=== PATIENT | female | born 1945 | race Caucasian/White ===

== ENCOUNTER 2016-11-02 20:34 | Emergency (ER) | payer MEDICARE, BC ==
[2016-11-02 21:01] VITALS: BP 138/83
[2016-11-02] MEDS ORDERED: Aspirin 81 MG Tab.Chew PO ONE (21:18)
[2016-11-02] MEDS ORDERED: Sodium Chloride 0.9% 10 ML Syringe FLUSH PRN (21:18)
--- NOTE | 2016-11-02 21:35 | EDM.PDOC ---
ED HISTORY OF PRESENT ILLNESS - General Chief Complaint: Cardiovascular Problem Stated Complaint: CHEST PRESSURE SOB Time Seen by Provider: 11/02/16 21:04 Source of Information: Reports: Patient History Limitations: Reports: No limitations - History of Present Illness INITIAL COMMENTS - FREE TEXT/NARRATIVE: Patient is a 70-year-old female with a history of [place], CABG x4, hypertension, hypercholesterolemia, and hypothyroidism. Patient presents ED complaining of substernal chest discomfort with shortness of breath. Patient states for the past month she's been experiencing intermittent chest discomfort described as a pressure in the middle portion of her chest rated a 6/10. In addition she's been noting increased shortness of breath as well. Prior to onset patient was on Lasix on an intermittent basis. With onset of symptoms she started to get more regulated up until a week ago. Notes at that time symptoms have gradually worsened. States she's never been diagnosed as CHF. Denies any recent weight gain or increased pedal edema. She is always determine her needs for Lasix to the degree of shortness of breath she has. This evening at approximately 1600 hours developed chest pain shortness of breath. Again thisit discomfort was described as a pressure sensation retrosternal rated a 6/10. She took one 10 mg tablet Lasix with onset. Upon arrival to the ED the pressure sensation has resolved in addition to her shortness of breath. Timing/Duration: Reports: Intermittent, Waxing/waning Severity: moderate Location, General: Reports: chest Quality: Reports: Ache, Pressure Improves with: Reports: Medication (Lasix), Rest Associated Symptoms (General): Reports: chest pain, malaise, shortness of breath. Denies: cough, diaphoresis, fever/chills, loss of appetite, nausea/ vomiting, syncope, weakness Treatments QUARTZ MOUNTER: Reports: Other (see below) (Lasix) - Related Data Allergies/ADRs: Allergies Allergy/AdvReac Type Severity Reaction Status Date / Time No Known Allergies Allergy Verified 11/02/16 21:01 Past Medical History Cardiovascular History: Reports: Arrhythmia, CAD, High cholesterol, Hypertension , [place] Genitourinary History: Reports: Renal calculus Endocrine/Metabolic History: Reports: Hypothyroidism - Past Surgical History Cardiovascular Surgical History: Reports: Coronary artery bypass GI Surgical History: Reports: Cholecystectomy Social & Family History - Family History Family Medical History: Noncontributory - Tobacco Use Smoking Status *Q: Never Smoker - Recreational Drug Use Recreational Drug Use: No ED ROS GENERAL - Review of Systems Review Of Systems: See Below Respiratory: Reports: Shortness of Breath. Denies: Pleuritic Chest Pain, Cough Cardiovascular: Reports: Chest pain, Dyspnea on exertion, Palpitations. Denies : Edema, Lightheadedness, Orthopnea, PND, Syncope GI/Abdominal: Denies: Abdominal pain, Nausea, Vomiting Musculoskeletal: Denies: back pain Neurological: Denies: Dizziness, Headache, Syncope, Weakness ED EXAM, GENERAL - Physical Exam Exam: See Below Exam Limited By: No limitations General Appearance: alert, WD/WN, no apparent distress Ears: hearing grossly normal Nose: normal inspection Throat/Mouth: Normal oropharynx, Normal voice, No airway compromise Neck: normal inspection, supple, non-tender. No: lymphadenopathy (L), lymphadenopathy (R) Respiratory/Chest: no respiratory distress, lungs clear, normal breath sounds, no accessory muscle use, chest non-tender Cardiovascular: normal peripheral pulses, extra beats Peripheral Pulses: 1+: radial (L) GI/Abdominal: normal bowel sounds, soft, non tender, no organomegaly, no distention Back Exam: normal inspection. No: paraspinal tenderness Extremities: normal inspection, non-tender, no pedal edema, normal capillary refill Neurological: alert, oriented, CN II-XII intact, normal cognition, no motor/ sensory deficits Psychiatric: normal affect, normal mood Skin Exam: Warm, Dry, Intact, Normal color, No rash Course - Vital Signs Last Recorded V/S: Last Vital Signs Temp 97.2 F 11/02/16 20:58 Pulse 51 L 11/02/16 20:58 Resp 26 H 11/02/16 20:58 BP 138/83 11/02/16 20:58 Pulse Ox 95 11/02/16 20:58 - Orders/Labs/Meds Orders: Active Orders 24 hr Category Date Time Status EKG Documentation Completion [RC] STAT Care 11/02/16 21:18 Active Peripheral IV Care [RC] . DIRECTED Care 11/02/16 21:18 Active CXR [Chest 1V Frontal] [CR] Stat Exams 11/02/16 21:20 Taken UA W/MICROSCOPIC [URIN] Stat Lab 11/02/16 21:18 Uncollected Sodium Chloride 0.9% [Saline Flush] Med 11/02/16 21:18 Active 10 ml FLUSH ASDIRECTED PRN Peripheral IV Insertion Adult [OM.PC] Stat Oth 11/02/16 21:18 Ordered Medication Orders Sodium Chloride (Saline Flush) 10 ml FLUSH ASDIRECTED PRN PRN Reason: Keep Vein Open Last Admin: 11/02/16 21:39 Dose: 10 ml Labs: Laboratory Tests 11/02/16 11/02/16 11/02/16 Range/Units 21:15 21:15 21:15 WBC 8.71 (3.98-10.04) K/mm3 RBC 4.00 (3.98-5.22) M/mm3 Hgb 11.9 (11.2-15.7) gm/L Hct 36.8 (34.1-44.9) % MCV 92.0 (79.4-94.8) fl MCH 29.8 (25.6-32.2) pg MCHC 32.3 (32.2-35.5) g/dl RDW Std Deviation 46.3 (36.4-46.3) fL Plt Count 237 (182-369) K/mm3 MPV 11.2 (9.4-12.3) fl Neut % (Auto) 47.6 (34.0-71.1) % Lymph % (Auto) 36.5 (19.3-51.7) % Tyler % (Auto) 12.1 (4.7-12.5) % Eos % (Auto) 3.1 (0.7-5.8) Baso % (Auto) 0.2 (0.1-1.2) % Neut # 4.15 (1.56-6.13) K/mm3 Lymph # 3.18 (1.18-3.74) K/mm3 Tyler # 1.05 H (0.24-0.36) K/mm3 Eos # 0.27 (0.04-0.36) K/mm3 Baso # 0.02 (0.01-0.08) K/mm3 PT 10.6 (8.0-13.0) SECONDS INR 0.97 APTT 27 (22-36) SECONDS Sodium 144 (136-145) mEq/L Potassium 3.6 (3.5-5.1) mEq/L Chloride 111 H (98-107) mEq/L Carbon Dioxide 23 (21-32) mEq/L Anion Gap 13.6 (5-15) BUN 28 H (7-18) mg/dL Creatinine 1.2 H (0.55-1.02) mg/dL Est Cr Clr Drug Dosing 37.12 mL/min Estimated GFR (MDRD) 45 (>60) mL/min BUN/Creatinine Ratio 23.3 H (14-18) Glucose 147 H (80-115) mg/dL Calcium 8.7 (8.5-10.1) mg/dL Magnesium 2.0 (1.8-2.4) mg/dl Total Bilirubin 0.4 (0.2-1.0) mg/dL AST 14 L (15-37) U/L ALT 22 (14-59) U/L Alkaline Phosphatase 92 (46-116) U/L CK-MB (CK-2) 1.2 (0-3.6) ng/ml Troponin I 0.133 H* (0.00-0.056) ng/mL C-Reactive Protein < 0.2 (<1.0) mg/dL B-Natriuretic Peptide (0-100) pg/mL Total Protein 6.9 (6.4-8.2) g/dl Albumin 3.4 (3.4-5.0) g/dl Globulin 3.5 gm/dL Albumin/Globulin Ratio 1.0 (1-2) // Range/Units 21:15 WBC (3.98-10.04) K/mm3 RBC (3.98-5.22) M/mm3 Hgb (11.2-15.7) gm/L Hct (34.1-44.9) % MCV (79.4-94.8) fl MCH (25.6-32.2) pg MCHC (32.2-35.5) g/dl RDW Std Deviation (36.4-46.3) fL Plt Count (182-369) K/mm3 MPV (9.4-12.3) fl Neut % (Auto) (34.0-71.1) % Lymph % (Auto) (19.3-51.7) % [place] % (Auto) (4.7-12.5) % Eos % (Auto) (0.7-5.8) Baso % (Auto) (0.1-1.2) % Neut # (1.56-6.13) K/mm3 Lymph # (1.18-3.74) K/mm3 Tyler # (0.24-0.36) K/mm3 Eos # (0.04-0.36) K/mm3 Baso # (0.01-0.08) K/mm3 PT (8.0-13.0) SECONDS INR APTT (22-36) SECONDS Sodium (136-145) mEq/L Potassium (3.5-5.1) mEq/L Chloride (98-107) mEq/L Carbon Dioxide (21-32) mEq/L Anion Gap (5-15) BUN (7-18) mg/dL Creatinine (0.55-1.02) mg/dL Est Cr Clr Drug Dosing mL/min Estimated GFR (MDRD) (>60) mL/min BUN/Creatinine Ratio (14-18) Glucose (80-115) mg/dL Calcium (8.5-10.1) mg/dL Magnesium (1.8-2.4) mg/dl Total Bilirubin (0.2-1.0) mg/dL AST (15-37) U/L ALT (14-59) U/L Alkaline Phosphatase (46-116) U/L CK-MB (CK-2) (0-3.6) ng/ml Troponin I (0.00-0.056) ng/mL C-Reactive Protein (<1.0) mg/dL B-Natriuretic Peptide 764 H (0-100) pg/mL Total Protein (6.4-8.2) g/dl Albumin (3.4-5.0) g/dl Globulin gm/dL Albumin/Globulin Ratio (1-2) Meds: Medications Generic Name Dose Route Start Last Admin Trade Name Freq PRN Reason Stop Dose Admin Sodium Chloride 10 ml 11/02/16 21:18 11/02/16 21:39 Saline Flush FLUSH 10 ml ASDIRECTED PRN Administration Keep Vein Open Discontinued Medications Generic Name Dose Route Start Last Admin Trade Name Freq PRN Reason Stop Dose Admin Aspirin 324 mg 11/02/16 21:18 11/02/16 21:38 Aspirin PO 11/02/16 21:19 324 mg ONETIME ONE Administration Enoxaparin Sodium 80 mg 11/02/16 22:52 Lovenox SUBCUT 11/02/16 22:53 ONETIME ONE - Re-Assessments/Exams Free Text/Narrative Re-Assessment/Exam: Ordered peripheral IV. Initial labs and studies include CBC, chem 14, CRP, troponin, CK-MB, INR, PTT, chest x-ray one view, magnesium, and EKG. EKG revealed a sinus rhythm at a rate of [address] changes noted. Chest x-ray revealed cardiomegaly with increased pulmonary vascularization noted. Interpretation pending. Labs reviewed: Sodium 144, potassium 3.6, creatinine 1.2, troponin elevated at 0.133. CK-MB within normal limits. BNP 64. UA was negative. CBC was normal. 11/02/16 22:53 2234 Shared the results of the above studies with the patient. The patient remains asymptomatic and has no complaints. Instructed patient I would like to have her transferred to [facility] via ambulance for further evaluation and treatment. Patient has refused ambulance transport and will go by personal vehicle. She was made aware that she may go into a fatal arrhythmia , worsening chest pain, and worsening shortness of breath. Patient again stated she has been like this for the past month and is still living. She reiterates she will be fine. 2[address] Discussed the patient with Dr. Tadeo [facility]. He has accepted the patient. States patient will be a direct admit. Requests patient be transported by ambulance. I advised him that patient will be coming by POV. 224 Again I advised patient I would like to have her transported by ambulance to which she refused. I will anticoagulate with lovenox 1mg/kg per request of Dr. Tadeo. She will be discharged with instructions. Departure - Departure Time of Disposition: 23:03 Disposition: DC/Tfer to Acute Hospital 02 Reason for Transfer *Q: Other (NSTEMI) Condition: fair Clinical Impression: NSTEMI (non-ST elevated myocardial infarction), Elevated troponin, Shortness of breath Chest pain Qualifiers: Chest pain type: chest pain due to myocardial ischemia Ischemic chest pain type : unspecified angina pectoris type Qualified Code(s): I20.9 - Angina pectoris, unspecified CHF (congestive heart failure) Qualifiers: Congestive heart failure type: unspecified congestive heart failure type Congestive heart failure chronicity: unspecified congestive heart failure chronicity Qualified Code(s): I50.9 - Heart failure, unspecified Instructions: Nonspecific Chest Pain, [id number] Referrals: Annie Guidry PA [Primary Care Provider] - Forms: ED Department Discharge Additional Instructions: As discussed Dr. Tadeo [facility] has accepted you. Please go to the admitting desk at the east entrance. If you develop worsening symptoms in transport call 911 and or proceed to the nearest E.D. You are at risk of developing worsening shortness of breath/chest pain with risk of developing a fatal arrhythmia during transport. Its in your best interest to be transported by ambulance so you can be treated appropriately if your condition worsens. - My Orders Last 24 Hours: My Active Orders 11/02/16 21:18 EKG Documentation Completion [RC] STAT Peripheral IV Care [RC] . DIRECTED UA W/MICROSCOPIC [URIN] Stat Sodium Chloride 0.9% [Saline Flush] 10 ml FLUSH ASDIRECTED PRN Peripheral IV Insertion Adult [OM.PC] Stat 11/02/16 21:20 CXR [Chest 1V Frontal] [CR] Stat - Assessment/Plan Last 24 Hours: My Active Orders 11/02/16 21:18 EKG Documentation Completion [RC] STAT Peripheral IV Care [RC] . DIRECTED UA W/MICROSCOPIC [URIN] Stat Sodium Chloride 0.9% [Saline Flush] 10 ml FLUSH ASDIRECTED PRN Peripheral IV Insertion Adult [OM.PC] Stat 11/02/16 21:20 CXR [Chest 1V Frontal] [CR] Stat
[2016-11-02] MEDS ORDERED: Enoxaparin 80 MG/0.8 ML Syringe SUBCUT ONE (22:52)
--- NOTE | 2016-11-03 08:01 | CR ---
Chest: Portable view of the chest was obtained. Comparison: No previous chest x-ray. Heart size at the upper limits of normal. Tortuous thoracic aorta is seen. Sternotomy noted for prior CABG. Central lung markings are mildly increased most likely due to minimal pulmonary vascular congestion. Slight areas of atelectasis or scarring noted within the right mid to lower lung. Bony structures are grossly intact. Impression: 1. Pulmonary vessels are slightly increased possibly due to minimal pulmonary vascular congestion. 2. Other incidental findings as described above. Diagnostic code #3
== END 2016-11-02 23:25 ==
LOC: JD.ED 20:34
DX: I21.4 Non-ST elevation (NSTEMI) myocardial infarction (principal); I50.9 Heart failure, unspecified; E78.00 Pure hypercholesterolemia, unspecified; I11.0 Hypertensive heart disease with heart failure; I25.2 Old myocardial infarction; E03.9 Hypothyroidism, unspecified
CPT/HCPCS: 36415; 71010; 80053; 82553; 83735; 83880; 84484; 85025; 85610; 85730; 86140; 93005; 96372; 99285; A9270; J7050; 99284

== ENCOUNTER 2018-02-27 19:13 | Emergency (ER) | payer MEDICARE, BC ==
[2018-02-27 19:24] VITALS: BP 153/89
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
[2018-02-27] MEDS ORDERED: Sodium Chloride 0.9% 1,000 ML IV SCH (20:00)
--- NOTE | 2018-02-28 09:26 | CT ---
CT abdomen and pelvis Technique: Multiple axial sections were obtained from above the dome of the diaphragm inferiorly through the pubic symphysis. Intravenous and oral contrast was not utilized. Delayed images were also obtained through the bladder. Comparison: Prior CT abdominal and pelvic exam performed without contrast dated 07/25/10. Findings: Small portion of the visualized lung bases show nothing acute. Dense mitral annulus calcification is seen within the heart. Liver shows no focal parenchymal abnormality. Surgical clips are seen from prior cholecystectomy. Spleen appears within normal limits. Adrenal glands show no nodule. Pancreas is normal. Surgical clips are seen from prior cholecystectomy. Kidneys show symmetric contrast enhancement. Small nonobstructing calculus is seen within the inferior left kidney measuring approximately 4 mm. Small cyst is noted within the mid left kidney measuring 1.1 cm. Aorta shows atherosclerotic calcification which continues into the iliac vessels without aneurysm. No retroperitoneal adenopathy is seen. Appendix is not visualized. No inflammatory change is seen within the abdomen or pelvis. Diverticuli are seen within the sigmoid and descending colon without findings of diverticulitis. No free fluid is seen within the abdomen or pelvis. No bowel dilatation is seen. Delayed images show contrast within the bladder. Bone window settings were reviewed which appear within normal limits for the patient's age. Impression: 1. Incidental findings. Nothing acute is seen. Diagnostic code #2 I agree with preliminary report issued by [employer] ([employer] preliminary report dictated on 02/28/18, 1:20 AM Central Time)
== END 2018-02-28 01:10 | disposition home or self-care (01) ==
LOC: JD.ED 19:13
DX: R10.31 Right lower quadrant pain (principal); E78.00 Pure hypercholesterolemia, unspecified; I10 Essential (primary) hypertension; I25.2 Old myocardial infarction; E03.9 Hypothyroidism, unspecified; Z79.899 Other long term (current) drug therapy
CPT/HCPCS: 36415; 74177; 80053; 81001; 83690; 85007; 85027; 96360; 96361; 99284; J7040

== ENCOUNTER 2018-09-08 15:18 | Emergency (ER) | payer MEDICARE, BC ==
[2018-09-08] MEDS ORDERED: Aspirin 81 MG Tab.Chew ONE (15:21)
[2018-09-08] MEDS ORDERED: Aspirin 81 MG Tab.Chew PO ONE (15:22)
[2018-09-08 15:28] VITALS: BP 98/68
[2018-09-08] MEDS ORDERED: Sodium Chloride 0.9% 1,000 ML IV SCH (15:30)
[2018-09-08] MEDS ORDERED: Metoclopramide 10 MG/2 ML SDV IVPUSH ONE (15:32)
--- NOTE | 2018-09-08 15:32 | EDM.PDOC ---
ED HPI GENERAL MEDICAL PROBLEM - General Chief Complaint: Syncope Stated Complaint: [facility] Time Seen by Provider: 09/08/18 15:22 Source of Information: Reports: Patient, EMS Notes Reviewed, Police History Limitations: Reports: No Limitations - History of Present Illness INITIAL COMMENTS - FREE TEXT/NARRATIVE: 72-year-old female presents to the ED per ambulance after collapsing at [facility] [place] [facility] where she was taking full dose for work. Apparently she works for the [employer]. She states she has no recollection of feeling unwell other than perhaps slightly dizzy just before her collapse. Tendons on scene identify that she did not have a pulse and was not breathing and therefore CPR was started. NAD was identified and placed. Apparently recommended shock and shock was given. CPR was started once again until the AED suggested a shock again and this second shock was provided. After this she developed spontaneous pulses and started to arouse. This is when the paramedics arrived. At this point time she is alert she is awake she's talking she remembers feeling slightly lightheaded before she collapsed. She has no recollection of having CPR done on her. She is complaining of diffuse right sided chest wall pain. Is a history of coronary disease having had bypass once in the past for another 2 or 3 vessel repair. She has had 4 stents placed as well due to coronary disease at different settings. On Plavix according to her medical list of meds. Initial blood pressure here was 98/62. She was given aspirin 324 mg chewed. ECG reveals sinus rhythm at 85/m with Q waves leads V1 and V2 and near Q-wave in V3 suggesting a large anteroseptal myocardial infarction. Marked left ventricular hypertrophy identified. There is ST segment depression V4 to V6 and one in aVL. Perhaps mild ST segment depression in lead 2 and aVF as well. T wave inversion in leads 1 and aVL. This suggests a non- STEMI. I will try and find another ECG for comparison purposes. She'll be given normal saline 150ml fluid bolus at this time. Routine labs including cardiac markers to be done. Onset: Today Onset Date: 09/08/18 Onset Time: 15:00 Duration: Minutes: Location: Reports: Chest, Generalized Quality: Reports: Ache (Rt side of her chest) Severity: Moderate Improves with: Reports: Rest Worsens with: Reports: Other (deep breathing), Movement Context: Reports: Other (sudden collapse ). Denies: Activity, Exercise, Lifting , Sick Contact, Trauma - Related Data Allergies Allergy/AdvReac Type Severity Reaction Status Date / Time No Known Allergies Allergy Verified 09/08/18 15:27 Home Meds: Home Meds Clopidogrel Bisulfate [Clopidogrel] 75 mg PO DAILY 11/29/16 [History] Famotidine [Take Home: Famotidine 20 MG, 3 Tab Pack] 20 mg PO BID 11/29/16 [ History] Latanoprost 1 drop EYEBOTH DAILY 11/29/16 [History] Levothyroxine Sodium 137 mcg PO DAILY 11/29/16 [History] Spironolactone [Aldactone] 12.5 mg PO BEDTIME 11/29/16 [History] atorvaSTATin Calcium [Atorvastatin Calcium] 40 mg PO DAILY 11/29/16 [History] Metoprolol Tartrate 50 mg PO DAILY 02/27/18 [History] Alendronate [Fosamax] 40 mg PO DAILY 09/08/18 [History] Aspirin [Adult Low Dose Aspirin EC] 81 mg PO DAILY 09/08/18 [History] Lisinopril 5 mg PO DAILY 09/08/18 [History] Lutein 10 mg PO DAILY 09/08/18 [History] Ubidecarenone [Co Q-10] 60 mg PO DAILY 09/08/18 [History] Past Medical History Cardiovascular History: Reports: Arrhythmia, Bypass (Has 4 stents placed. I passed surgery as they believe 5 years ago with ear double or triple bypass. Grisel on Plavix 75 mg daily and baby aspirin 81 mg daily), CAD, High Cholesterol , Hypertension, [place], Stents Genitourinary History: Reports: Renal Calculus Endocrine/Metabolic History: Reports: Hypothyroidism - Past Surgical History Cardiovascular Surgical History: Reports: Coronary Artery Bypass (She is not sure if she had double or triple bypass surgery.), Other (See Below) ([place] IV coronary artery stents as well.) GI Surgical History: Reports: Cholecystectomy Social & Family History - Family History Family Medical History: Noncontributory - Living Situation & Occupation Living situation: Reports: Occupation: Employed ED ROS GENERAL - Review of Systems Review Of Systems: See Below Constitutional: Reports: Malaise, Fatigue. Denies: Fever, Chills HEENT: Reports: Glasses Respiratory: Reports: Pleuritic Chest Pain, Other. Denies: Shortness of Breath , Wheezing, Cough (Right-sided chest pain deep ache.), Sputum Cardiovascular: Reports: Chest Pain (Mostly to the right of the sternum.), Blood Pressure Problem, Lightheadedness. Denies: Claudication, Dyspnea on Exertion, Edema (Members feeling a little bit lightheaded and dizzy prior to collapse), Orthopnea (Often runs low.), Palpitations Endocrine: Reports: Fatigue GI/Abdominal: Reports: No Symptoms : Reports: Frequency Musculoskeletal: Reports: Back Pain, Joint Pain (Knees and hips and shoulders at times) Skin: Reports: Bruising Neurological: Reports: No Symptoms (Bruises easily as she is on Plavix and aspirin) Psychiatric: Reports: No Symptoms Hematologic/Lymphatic: Reports: No Symptoms Immunologic: Reports: No Symptoms ED EXAM, GENERAL - Physical Exam Exam: See Below Exam Limited By: No Limitations General Appearance: Alert, WD/WN, Anxious, Mild Distress Eye Exam: Bilateral Eye: Normal Inspection Throat/Mouth: Normal Inspection, Normal Lips, Normal Oropharynx Head: Atraumatic, Normocephalic Neck: Normal Inspection, Supple, Non-Tender, Full Range of Motion. No: Lymphadenopathy (L), Lymphadenopathy (R) Respiratory/Chest: No Respiratory Distress, Lungs Clear, Normal Breath Sounds, No Accessory Muscle Use, Other (Chest wall tenderness throughout ribs 345 and 6 on the right side of her chest. No crepitus noted no subcutaneous emphysema.) Cardiovascular: Regular Rate, Rhythm, No Edema, No Gallop, No Murmur, No Rub, Other (Pulses are very weak in her feet. Well-healed midline sternotomy incision.). No: Normal Peripheral Pulses Peripheral Pulses: 1+: Posterior Tibial (L), Posterior Tibial (R), Dorsalis Pedis (L), Dorsalis Pedis (R) GI/Abdominal: Normal Bowel Sounds, Soft, Non-Tender, No Organomegaly, No Abnormal Bruit Back Exam: Normal Inspection, Full Range of Motion Extremities: Normal Inspection, Normal Range of Motion, Non-Tender, No Pedal Edema, Other Neurological: Alert, Oriented (No signs of extremity trauma.), CN II-XII Intact , Normal Cognition, No Motor/Sensory Deficits Psychiatric: Anxious Skin Exam: Dry, Intact, Normal Color, Cool EKG INTERPRETATION EKG Date: 09/08/18 Time: 15:21 Rhythm: NSR Rate (Beats/Min): 85 [place]: LAD-Left [place] Deviation (-45 left anterior fascicular block pattern.) P-Wave: Enlarged (Query left atrial hypertrophy.) QRS: Other (Left ventricular hypertrophy pattern. Her Q waves V1 and V2 and near Q-wave in V3 suggesting an old anteroseptal myocardial infarction.) ST-T: Depressed (T-segment depression V4 to V6 1 and aVL suggesting ischemia in the lateral apical wall.) QT: Prolonged (Mildly prolonged.) Course - Vital Signs Last Recorded V/S: Last Vital Signs Temp 36.8 C 09/08/18 15:24 Pulse 90 09/08/18 15:24 Resp 17 09/08/18 15:24 BP 98/68 09/08/18 15:24 Pulse Ox 98 09/08/18 15:24 - Orders/Labs/Meds Orders: Active Orders 24 hr Category Date Time Status EKG Documentation Completion [RC] STAT Care 09/08/18 15:26 Active Chest 1V Frontal [CR] Stat Exams 09/08/18 15:26 Taken Labs: Laboratory Tests 09/08/18 09/08/18 09/08/18 Range/Units 15:30 15:30 15:30 WBC 9.87 (3.98-10.04) K/mm3 RBC 3.49 L (3.98-5.22) M/mm3 Hgb 10.6 L (11.2-15.7) gm/L Hct 33.1 L (34.1-44.9) % MCV 94.8 (79.4-94.8) fl MCH 30.4 (25.6-32.2) pg MCHC 32.0 L (32.2-35.5) g/dl RDW Std Deviation 48.2 H (36.4-46.3) fL Plt Count 336 (182-369) K/mm3 MPV 10.7 (9.4-12.3) fl Neutrophils % (Manual) 57 (40-60) % Band Neutrophils % 2 (0-10) % Lymphocytes % (Manual) 32 (20-40) % Atypical Lymphs % 0 % Monocytes % (Manual) 7 (2-10) % Eosinophils % (Manual) 2 (0.7-5.8) % Basophils % (Manual) 0 L (0.1-1.2) Platelet Estimate Adequate RBC Morph Comment Normal PT 11.3 (9.5-12.1) SECONDS INR 1.04 APTT 26 (24-31) SECONDS Sodium 140 (136-145) mEq/L Potassium 3.1 L (3.5-5.1) mEq/L Chloride 104 (98-107) mEq/L Carbon Dioxide 16 L (21-32) mEq/L Anion Gap 23.1 H (5-15) BUN 32 H (7-18) mg/dL Creatinine 1.5 H (0.55-1.02) mg/dL Est Cr Clr Drug Dosing TNP Estimated GFR (MDRD) 34 (>60) mL/min BUN/Creatinine Ratio 21.3 H (14-18) Glucose 182 H (80-115) mg/dL Calcium 9.0 (8.5-10.1) mg/dL Magnesium 1.8 (1.8-2.4) mg/dl Total Bilirubin 0.4 (0.2-1.0) mg/dL AST 127 H (15-37) U/L ALT 117 H (14-59) U/L Alkaline Phosphatase 116 (46-116) U/L CK-MB (CK-2) 1.6 (0-3.6) ng/ml Troponin I 0.240 H* (0.00-0.056) ng/mL NT-Pro-B Natriuret Pep (0-125) pg/mL Total Protein 7.7 (6.4-8.2) g/dl Albumin 3.3 L (3.4-5.0) g/dl Globulin 4.4 gm/dL Albumin/Globulin Ratio 0.8 L (1-2) 09/08/18 Range/Units 15:30 WBC (3.98-10.04) K/mm3 RBC (3.98-5.22) M/mm3 Hgb (11.2-15.7) gm/L Hct (34.1-44.9) % MCV (79.4-94.8) fl MCH (25.6-32.2) pg MCHC (32.2-35.5) g/dl RDW Std Deviation (36.4-46.3) fL Plt Count (182-369) K/mm3 MPV (9.4-12.3) fl Neutrophils % (Manual) (40-60) % Band Neutrophils % (0-10) % Lymphocytes % (Manual) (20-40) % Atypical Lymphs % % Monocytes % (Manual) (2-10) % Eosinophils % (Manual) (0.7-5.8) % Basophils % (Manual) (0.1-1.2) Platelet Estimate RBC Morph Comment PT (9.5-12.1) SECONDS INR APTT (24-31) SECONDS Sodium (136-145) mEq/L Potassium (3.5-5.1) mEq/L Chloride (98-107) mEq/L Carbon Dioxide (21-32) mEq/L Anion Gap (5-15) BUN (7-18) mg/dL Creatinine (0.55-1.02) mg/dL Est Cr Clr Drug Dosing Estimated GFR (MDRD) (>60) mL/min BUN/Creatinine Ratio (14-18) Glucose (80-115) mg/dL Calcium (8.5-10.1) mg/dL Magnesium (1.8-2.4) mg/dl Total Bilirubin (0.2-1.0) mg/dL AST (15-37) U/L ALT (14-59) U/L Alkaline Phosphatase (46-116) U/L CK-MB (CK-2) (0-3.6) ng/ml Troponin I (0.00-0.056) ng/mL NT-Pro-B Natriuret Pep 3024 H (0-125) pg/mL Total Protein (6.4-8.2) g/dl Albumin (3.4-5.0) g/dl Globulin gm/dL Albumin/Globulin Ratio (1-2) Meds: Medications Discontinued Medications Generic Name Dose Route Start Last Admin Trade Name Rjq PRN Reason Stop Dose Admin Aspirin 324 mg 09/08/18 15:22 09/08/18 15:28 Aspirin PO 09/08/18 15:23 324 mg ONETIME ONE Administration Aspirin Confirm 09/08/18 15:21 09/08/18 15:29 Aspirin Administered 09/08/18 15:22 Not Given Dose 324 mg .ROUTE .STK-MED ONE Heparin Sodium (Porcine) 5,000 units 09/08/18 15:56 09/08/18 16:05 Heparin Sodium IVPUSH 09/08/18 15:57 5,000 units ONETIME ONE Administration Sodium Chloride 1,000 mls @ 125 mls/hr 09/08/18 15:30 09/08/18 15:28 Normal Saline IV 125 mls/hr ASDIRECTED DIOR Administration Heparin Sodium/Dextrose 25,000 units in 500 mls @ 20 mls/hr 09/08/18 16:00 16:07 Heparin 25,000 Units In D5w 500 Ml IV 1,000 units/hr ASDIRECTED DIOR 20 mls/hr Administration 1,000 UNITS/HR Heparin Sodium/Dextrose Confirm 09/08/18 16:06 09/08/18 16:11 Heparin 25,000 Units In D5w 500 Ml Administered 09/08/18 16:07 Not Given Dose 500 mls @ as directed .ROUTE .STK-MED ONE Norepinephrine Bitartrate 4 mg 250 mls @ 7.5 mls/hr 09/08/18 16:30 09/08/18 16:36 / Dextrose/Water IV 2 mcg/min TITRATE DIOR 7.5 mls/hr Administration Protocol 2 MCG/MIN Dextrose/Water Confirm 09/08/18 16:29 09/08/18 16:45 Dextrose 5% In Water Administered 09/08/18 16:30 Not Given Dose 250 mls @ as directed .ROUTE .STK-MED ONE Lidocaine HCl 100 mg 09/08/18 16:05 09/08/18 16:11 Xylocaine 2% IVPUSH 09/08/18 16:06 Not Given ONETIME ONE Lidocaine HCl 100 mg 09/08/18 16:14 09/08/18 16:15 Xylocaine 2% IVPUSH 09/08/18 16:15 100 mg ONETIME ONE Administration Lidocaine HCl Confirm 09/08/18 16:13 09/08/18 16:25 Xylocaine 2% Administered 09/08/18 16:14 Not Given Dose 100 mg .ROUTE .STK-MED ONE Metoclopramide HCl 7.5 mg 09/08/18 15:32 09/08/18 15:36 Reglan IVPUSH 09/08/18 15:33 7.5 mg ONETIME ONE Administration Norepinephrine Bitartrate Confirm 09/08/18 16:29 09/08/18 16:45 Levophed Administered 09/08/18 16:30 Not Given Dose 4 mg .ROUTE .STK-MED ONE - Radiology Interpretation Free Text/Narrative:: 72-year-old female arrives in the ED after collapsing at the [facility] gymnasium 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 When she suddenly collapsed to the gymnasium floor with many people able to attend her . CPR was started when it was recognized she did not have a pulse and was not breathing. ADD was then available. It was attached and identified a shockable rhythm she was shocked once and then CPR was restarted. Second ADD also advise shock and she was soft for the second time with return of spontaneous pulse and awoke and was able to speak. Complains of diffuse right- sided chest pain which he states it's different than what she expression from a heart attack in the past. Her ECG shows ST segment depression V4 to V6 as well as one in aVL. There is evidence of an old anteroseptal myocardial infarction and left ventricular hypertrophy pattern. Her initial blood pressure was 98/62 but started to fall shortly after arrival and therefore she was receiving the 500 mils fluid bolus. She then developed a bigeminy rhythm. Blood pressure was 94 on 46. Given lidocaine 100 mg IV bolus as amiodarone will lower the pressure further. Of course routine labs have been collected. Patient was given 324 mg aspirin chewed. She was started on heparin 1000 units per hour to 5000 unit bolus. - Re-Assessments/Exams Free Text/Narrative Re-Assessment/Exam: 09/08/18 16:32 H and has now received 500 mils of normal saline IV bolus and pressures come up to 98/63. Levophed drip at been ordered at 2 mcg/m because the pressure stayed at 86 systolic for a lengthy period of time. The lidocaine 100 mg IV bolus seemed to resolve a good deal of her bigeminy and trigeminy. Has occasional PVCs at this time. Blood pressure still too low to allow amiodarone infusion. I did speak with Dr. Barrios radiologist it's safe [facility] and he is accepted care. Patient will be sent through the ED first and I did speak with the on-call ED physician as well.Dr Damico. Patient will be transported by ground ambulance as a helicopter cannot find this time and an air embolus will take better part of 3 hours to get to [place]. She remains alert oriented and able to answer all questions appropriately. Departure - Departure Time of Disposition: 17:25 Disposition: DC/Tfer to Acute Hospital 02 Reason for Transfer *Q: Primary PCI Indicated Condition: Serious Clinical Impression: Observed collapse due to cardiac arrest, NSTEMI (non-ST elevated myocardial infarction), Cardiac arrest due to underlying cardiac condition Referrals: PCP,None [Primary Care Provider] - Forms: ED Department Discharge Additional Instructions: patient transferred to [facility] in [place] where she has received previous cardiac care and her 4 stents and bypass in the past. She is to go to the ER first reevaluation and janitor caretaker Dr. Barrios will see her there. Impression at the time of discharge was 99/68. Remains on 2 mcg/m of levophed. - My Orders Last 24 Hours: My Active Orders 09/08/18 15:26 EKG Documentation Completion [RC] STAT Chest 1V Frontal [CR] Stat - Assessment/Plan Last 24 Hours: My Active Orders 09/08/18 15:26 EKG Documentation Completion [RC] STAT Chest 1V Frontal [CR] Stat
[2018-09-08] MEDS ORDERED: Heparin Sodium 5,000 Units/ML Vial IVPUSH ONE (15:56)
[2018-09-08] MEDS ORDERED: Heparin Sodium/D5W 25,000 UNITS/500 ML BAG IV SCH (16:00)
[2018-09-08] MEDS ORDERED: Lidocaine 2% 100 MG/5 ML Syringe IVPUSH ONE ×2 (16:05→16:14)
[2018-09-08] MEDS ORDERED: Heparin Sodium/D5W 500 ML ONE (16:06)
[2018-09-08] MEDS ORDERED: Lidocaine 2% 100 MG/5 ML Syringe ONE (16:13)
[2018-09-08] MEDS ORDERED: Dextrose 5% in Water 250 ML ONE (16:29)
[2018-09-08] MEDS ORDERED: Norepinephrine 4 MG/4 ML SDV ONE (16:29)
[2018-09-08] MEDS ORDERED: Norepinephrine 4 MG in Dextrose 5% in Water 246 ML IV SCH ×2 (16:30)
--- NOTE | 2018-09-09 08:24 | CR ---
Chest: Portable view of the chest was obtained. Comparison: Prior chest x-ray of 11/02/16. Heart is mildly enlarged. Previous sternotomy for CABG is seen. Lungs are clear with no acute parenchymal change. Bony structures are grossly intact. Impression: 1. Findings as noted above. Nothing acute is appreciated on portable chest x-ray. Diagnostic code #2
== END 2018-09-08 17:15 ==
LOC: JD.ED 15:18
DX: I21.4 Non-ST elevation (NSTEMI) myocardial infarction (principal); I46.2 Cardiac arrest due to underlying cardiac condition; E78.00 Pure hypercholesterolemia, unspecified; I10 Essential (primary) hypertension; I25.810 Atherosclerosis of coronary artery bypass graft(s) without angina pectoris; Z90.49 Acquired absence of other specified parts of digestive tract
CPT/HCPCS: 36415; 71045; 80053; 82553; 83735; 83880; 84484; 85007; 85027; 85610; 85730; 93005; 96361; 96365; 96375; 99285; A9270; J1644; J2001; J2765; J7040; J7060

== ENCOUNTER 2018-12-08 16:12 | Emergency (ER) | payer MEDICARE, BC ==
[2018-12-08 16:19] VITALS: BP 157/84
[2018-12-08] MEDS ORDERED: Sodium Chloride 0.9% 10 ML Syringe FLUSH PRN (16:51)
[2018-12-08] MEDS ORDERED: Sodium Chloride 0.9% 1,000 ML IV SCH (17:00)
--- NOTE | 2018-12-08 17:58 | EDM.PDOC ---
ED HPI GENERAL MEDICAL PROBLEM - General Chief Complaint: Abdominal Pain Stated Complaint: ABD PAIN FROM [facility] Time Seen by Provider: 12/08/18 16:41 Source of Information: Reports: Patient, Family History Limitations: Reports: No Limitations - History of Present Illness INITIAL COMMENTS - FREE TEXT/NARRATIVE: The patient presents with right lower abdominal pain with hernia. This has been an issue since last summer. She had a CT done here in February and nothing was seen at that time. She had cardiac arrest in August and she was revived and sent to [facility]. She sees Dr Barrios for cardiology and she is in cardiopulmonary rehab. She has a lower EF. She says the hernia goes out a few times per day now and there is more pain. Her doctor who is a doctor was here visiting and she helped reduce the hernia. She feels better now. She has no nausea, vomiting or diarrhea. She has no dysuria. She has no chest pain or shortness of breath. Onset: Gradual Duration: Week(s): Location: Reports: Abdomen Quality: Reports: Sharp Severity: Moderate Improves with: Reports: None Worsens with: Reports: None Associated Symptoms: Reports: No Other Symptoms Abdomen Pain Score (Numeric/FACES): 5 - Related Data Allergies Allergy/AdvReac Type Severity Reaction Status Date / Time No Known Allergies Allergy Verified 12/08/18 16:20 Home Meds: Home Meds Clopidogrel Bisulfate [Clopidogrel] 75 mg PO DAILY 11/29/16 [History] Latanoprost 1 drop EYEBOTH DAILY 11/29/16 [History] atorvaSTATin Calcium [Atorvastatin Calcium] 40 mg PO DAILY 11/29/16 [History] Metoprolol Tartrate 25 mg PO DAILY 02/27/18 [History] Aspirin [Adult Low Dose Aspirin EC] 81 mg PO DAILY 09/08/18 [History] Lisinopril 2.5 mg PO DAILY 09/08/18 [History] Levothyroxine 112 mcg PO ACBREAKFAST 10/25/18 [History] Past Medical History HEENT History: Reports: Other (See Below) Other HEENT History: near sighted Cardiovascular History: Reports: Arrhythmia, Bypass, CAD, High Cholesterol, Hypertension, [place], Stents Gastrointestinal History: Reports: Other (See Below) Other Gastrointestinal History: hernia Genitourinary History: Reports: Renal Calculus [employer] History: Reports: Endocrine/Metabolic History: Reports: Hypothyroidism - Past Surgical History Cardiovascular Surgical History: Reports: Coronary Artery Bypass, Other (See Below) GI Surgical History: Reports: Cholecystectomy Social & Family History - Family History Family Medical History: Noncontributory - Tobacco Use Smoking Status *Q: Never Smoker - Caffeine Use Caffeine Use: Reports: Coffee - Living Situation & Occupation Living situation: Reports: Occupation: Employed ED ROS GENERAL - Review of Systems Review Of Systems: See Below Constitutional: Reports: No Symptoms HEENT: Reports: No Symptoms Respiratory: Reports: No Symptoms Cardiovascular: Reports: No Symptoms Endocrine: Reports: No Symptoms GI/Abdominal: Reports: Abdominal Pain : Reports: No Symptoms Musculoskeletal: Reports: No Symptoms ED EXAM, GI/ABD - Physical Exam Exam: See Below Exam Limited By: No Limitations General Appearance: Alert, No Apparent Distress Ears: Normal External Exam Nose: Normal Inspection Head: Atraumatic, Normocephalic Neck: Normal Inspection Respiratory/Chest: No Respiratory Distress, Lungs Clear, Normal Breath Sounds Cardiovascular: Regular Rate, Rhythm, No Edema, No Murmur GI/Abdominal Exam: Soft, No Organomegaly, No Mass, Tender (mild tenderness to the right lower abdomen) Course - Vital Signs Last Recorded V/S: Last Vital Signs Temp 97.4 F 12/08/18 16:19 Pulse 55 L 12/08/18 16:19 Resp 18 12/08/18 16:19 BP 157/84 H 12/08/18 16:19 Pulse Ox 99 12/08/18 16:19 - Orders/Labs/Meds Orders: Active Orders 24 hr Category Date Time Status Peripheral IV Care [RC] . DIRECTED Care 12/08/18 16:52 Active Abdomen Pelvis w Cont [CT] Stat Exams 12/08/18 16:51 Ordered UA W/MICROSCOPIC [URIN] Stat Lab 12/08/18 16:51 Ordered Sodium Chloride 0.9% [Normal Saline] 1,000 ml Med 12/08/18 17:00 Active IV ASDIRECTED Sodium Chloride 0.9% [Saline Flush] Med 12/08/18 16:51 Active 10 ml FLUSH ASDIRECTED PRN Peripheral IV Insertion Adult [OM.PC] Stat Oth 12/08/18 16:51 Ordered Medication Orders Sodium Chloride (Normal Saline) 1,000 mls @ 125 mls/hr IV ASDIRECTED DIOR Last Admin: 12/08/18 17:11 Dose: 125 mls/hr Sodium Chloride (Saline Flush) 10 ml FLUSH ASDIRECTED PRN PRN Reason: Keep Vein Open Last Admin: 12/08/18 17:12 Dose: 10 ml Labs: Laboratory Tests 12/08/18 12/08/18 Range/Units 17:09 17:09 WBC 9.76 (3.98-10.04) K/mm3 RBC 4.11 (3.98-5.22) M/mm3 Hgb 12.2 D (11.2-15.7) gm/L Hct 37.4 (34.1-44.9) % MCV 91.0 (79.4-94.8) fl MCH 29.7 (25.6-32.2) pg MCHC 32.6 (32.2-35.5) g/dl RDW Std Deviation 47.7 H (36.4-46.3) fL Plt Count 210 (182-369) K/mm3 MPV 10.7 (9.4-12.3) fl Neut % (Auto) 60.4 (34.0-71.1) % Lymph % (Auto) 25.6 (19.3-51.7) % [place] % (Auto) 10.7 (4.7-12.5) % Eos % (Auto) 2.9 (0.7-5.8) Baso % (Auto) 0.2 (0.1-1.2) % Neut # (Auto) 5.90 (1.56-6.13) K/mm3 Lymph # (Auto) 2.50 (1.18-3.74) K/mm3 [place] # (Auto) 1.04 H (0.24-0.36) K/mm3 Eos # (Auto) 0.28 (0.04-0.36) K/mm3 Baso # (Auto) 0.02 (0.01-0.08) K/mm3 Sodium 143 (136-145) mEq/L Potassium 4.3 (3.5-5.1) mEq/L Chloride 111 H (98-107) mEq/L Carbon Dioxide 19 L (21-32) mEq/L Anion Gap 17.3 H (5-15) BUN 41 H (7-18) mg/dL Creatinine 1.6 H (0.55-1.02) mg/dL Est Cr Clr Drug Dosing 26.68 mL/min Estimated GFR (MDRD) 32 (>60) mL/min BUN/Creatinine Ratio 25.6 H (14-18) Glucose 105 (83-115) mg/dL Calcium 9.6 (8.5-10.1) mg/dL Total Bilirubin 0.3 (0.2-1.0) mg/dL AST 24 (15-37) U/L ALT 35 (14-59) U/L Alkaline Phosphatase 109 (46-116) U/L Total Protein 7.8 (6.4-8.2) g/dl Albumin 3.8 (3.4-5.0) g/dl Globulin 4.0 gm/dL Albumin/Globulin Ratio 1.0 (1-2) Lipase 245 (73-393) U/L Meds: Medications Generic Name Dose Route Start Last Admin Trade Name Freq PRN Reason Stop Dose Admin Sodium Chloride 1,000 mls @ 125 mls/hr 12/08/18 17:00 12/08/18 17:11 Normal Saline IV 125 mls/hr ASDIRECTED DIOR Administration Sodium Chloride 10 ml 12/08/18 16:51 12/08/18 17:12 Saline Flush FLUSH 10 ml ASDIRECTED PRN Administration Keep Vein Open - Re-Assessments/Exams Free Text/Narrative Re-Assessment/Exam: 12/08/18 18:02 I ordered an IV saline lock labs and a CT of her abdomen and pelvis. I looked at the prior CT with her daughter who is also a doctor and we both felt like we say a defect in the right lower abdomen. I do not think I need to do another CT she is feeling better. 12/08/18 18:04 Her CBC looks good. Her anion gap was elevated at 17.3. Her creatinine was elevated at 1.6. Her GFR is 32. Her lipase is normal at 245. I called Dr Medrano at [facility] and he can see the patient. Departure - Departure Time of Disposition: 18:05 Disposition: Home, Self-Care 01 Condition: Good Clinical Impression: Abdominal wall hernia - Discharge Information *PRESCRIPTION DRUG MONITORING PROGRAM REVIEWED*: Not Applicable *COPY OF PRESCRIPTION DRUG MONITORING REPORT IN PATIENT ROLLY: Not Applicable Referrals: Marlen Forrester MD [Primary Care Provider] - 1 Week Rory Medrano MD [Ordering Only Provider] - 1 Week Forms: ED Department Discharge Additional Instructions: Follow up with Dr Rory Medrano at [facility] within the week. If you have any more pain, try to reduce the hernia by laying down with your feet elevated and try to relax and put gentle pressure on the hernia. If that does not help, please do not hesitate to return. - My Orders Last 24 Hours: My Active Orders 12/08/18 16:51 Abdomen Pelvis w Cont [CT] Stat UA W/MICROSCOPIC [URIN] Stat Sodium Chloride 0.9% [Saline Flush] 10 ml FLUSH ASDIRECTED PRN Peripheral IV Insertion Adult [OM.PC] Stat 12/08/18 16:52 Peripheral IV Care [RC] . DIRECTED 12/08/18 17:00 Sodium Chloride 0.9% [Normal Saline] 1,000 ml IV ASDIRECTED - Assessment/Plan Last 24 Hours: My Active Orders 12/08/18 16:51 Abdomen Pelvis w Cont [CT] Stat UA W/MICROSCOPIC [URIN] Stat Sodium Chloride 0.9% [Saline Flush] 10 ml FLUSH ASDIRECTED PRN Peripheral IV Insertion Adult [OM.PC] Stat 12/08/18 16:52 Peripheral IV Care [RC] . DIRECTED 12/08/18 17:00 Sodium Chloride 0.9% [Normal Saline] 1,000 ml IV ASDIRECTED
== END 2018-12-08 18:17 | disposition home or self-care (01) ==
LOC: JD.ED 16:12
DX: K43.9 Ventral hernia without obstruction or gangrene (principal)
CPT/HCPCS: 36415; 80053; 83690; 85025; 96360; 99284; J7040; 99283

== ENCOUNTER 2022-04-04 02:21 | Emergency (ER) | payer MEDICARE, BC ==
[2022-04-04] MEDS ORDERED: Sodium Chloride 0.9% 10 ML Syringe FLUSH PRN (02:38)
[2022-04-04] MEDS ORDERED: Diltiazem 25 MG/5 ML SDV IVPUSH ONE (02:45)
[2022-04-04] MEDS ORDERED: Sodium Chloride 0.9% 1,000 ML IV SCH ×2 (03:00→04:15)
[2022-04-04 06:03] VITALS: BP 104/60; PULSE 68
== END 2022-04-04 05:46 | disposition home or self-care (01) ==
LOC: JD.ED 02:21
DX: I48.91 Unspecified atrial fibrillation (principal); I10 Essential (primary) hypertension; I25.2 Old myocardial infarction; I25.10 Atherosclerotic heart disease of native coronary artery without angina pectoris; Z20.822 Contact with and (suspected) exposure to COVID-19
CPT/HCPCS: 36415; 71045; 71045-26; 80053; 83880; 84484; 85025; 85610; 93005; 93010; 96361; 96374; 99284; 99285-25; J3490; J7030; U0002

== ENCOUNTER 2022-11-03 14:00 | Emergency (ER) | payer MEDICARE, BC ==
[2022-11-03 14:14] VITALS: BP 137/64; PULSE 70
[2022-11-03] MEDS ORDERED: Oxymetazoline 0.05% Nasal Spray 30 ML Bottle NAS ONE (14:23)
== END 2022-11-03 15:59 | disposition home or self-care (01) ==
LOC: JD.ED 14:00
DX: R04.0 Epistaxis (principal); I25.10 Atherosclerotic heart disease of native coronary artery without angina pectoris; E78.00 Pure hypercholesterolemia, unspecified; I10 Essential (primary) hypertension; I25.2 Old myocardial infarction; E03.9 Hypothyroidism, unspecified; Z95.1 Presence of aortocoronary bypass graft; Z86.16 Personal history of COVID-19; Z79.02 Long term (current) use of antithrombotics/antiplatelets; Z79.82 Long term (current) use of aspirin; Z79.899 Other long term (current) drug therapy
CPT/HCPCS: 99283; A9270; C9046

== ENCOUNTER 2023-01-19 11:01 | Emergency (ER) | payer MEDICARE, BC ==
[2023-01-19] MEDS ORDERED: Sodium Chloride 0.9% 500 ML IV ONE ×2 (11:18→11:53)
[2023-01-19] MEDS ORDERED: Diltiazem 25 MG/5 ML SDV IVPUSH ONE (11:20)
[2023-01-19] MEDS ORDERED: Amiodarone 150 MG/3 ML SDV ONE ×2 (11:35→11:59)
[2023-01-19 11:43] LABS: BASOPHILS ABSOLUTE AUTO 0.02 K/mm3 (0.01-0.08); BASOPHILS PERCENT AUTO 0.3 % (0.1-1.2); EOSINOPHILS ABSOLUTE AUTO 0.14 K/mm3 (0.04-0.36); EOSINOPHILS PERCENT AUTO 2.1 (0.7-5.8); HEMATOCRIT 30.9 % (34.1-44.9); HEMOGLOBIN 9.3 gm/dl (11.2-15.7); IMMATURE GRAN ABSOLUTE AUTO 0.01 K/mm3 (0.00-0.10); IMMATURE GRAN PERCENT AUTO 0.2 % (<=1.0); LYMPHOCYTES ABSOLUTE AUTO 2.37 K/mm3 (1.18-3.74); LYMPHOCYTES PERCENT AUTO 36.1 % (19.3-51.7); MEAN CORPUSCULAR HEMOGLOBIN 29.2 pg (25.6-32.2); MEAN CORPUSCULAR HGB CONC 30.1 g/dl (32.2-35.5); MEAN CORPUSCULAR VOLUME 97.2 fl (79.4-94.8); MEAN PLATELET VOLUME 10.7 fl (9.4-12.3); MONOCYTES ABSOLUTE AUTO 0.53 K/mm3 (0.24-0.36); MONOCYTES PERCENT AUTO 8.1 % (4.7-12.5); NEUTROPHILS ABSOLUTE AUTO 3.49 K/mm3 (1.56-6.13); NEUTROPHILS PERCENT AUTO 53.2 % (34.0-71.1); PLATELET COUNT,PLT 308 K/mm3 (182-369); RED BLOOD CELL COUNT 3.18 M/mm3 (3.98-5.22); WHITE BLOOD CELL COUNT,WBC 6.56 K/mm3 (3.98-10.04)
[2023-01-19 11:50] LABS: INR 1.58; PROTHROMBIN TIME 16.3 SECONDS (9.7-12.0)
[2023-01-19 12:01] LABS: A/G RATIO 0.8 (1-2); ALBUMIN 3.6 g/dl (3.4-5.0); BILIRUBIN TOTAL 0.9 mg/dL (0.2-1.0); BUN/CREATININE RATIO 21.1 (14-18); CALCIUM 9.2 mg/dL (8.5-10.1); CREATININE 1.8 mg/dL (0.55-1.02); EST CRCL DRUG DOSING (CG) 22.34 mL/min; MAGNESIUM 2.5 mg/dL (1.8-2.4)
[2023-01-19] MEDS: Amiodarone 150 MG/3 ML SDV IVPUSH SCH ×5 (12:11→16:33)
[2023-01-19] MEDS ORDERED: Ondansetron 4 MG/2 ML SDV IVPUSH ONE (12:36)
[2023-01-19 13:09] LABS: LACTIC ACID 2.5 mmol/L (0.4-2.0)
[2023-01-19 13:47] LABS: APPEARANCE,URINE CLEAR (Clear); BILIRUBIN,URINE NEGATIVE (Negative); COLOR,URINE YELLOW (Yellow); GLUCOSE,URINE 2+ (Negative); KETONES,URINE NEGATIVE (Negative); LEUKOCYTE ESTERASE,URINE NEGATIVE (Negative); NITRITE,URINE NEGATIVE (Negative); OCCULT BLOOD,URINE NEGATIVE (Negative); PH,URINE 5.5 (5.0-8.0); PROTEIN,URINE 2+ (Negative); UROBILINOGEN,URINE 0.2 (0.2-1.0)
[2023-01-19 14:04] LABS: RBC,URINE 0-5 /hpf (0-5); SQUAMOUS EPITHELIAL CELLS,UR 0-5 /hpf (0-5); WBC,URINE 0-5 /hpf (0-5)
[2023-01-19 14:05] LABS: BACTERIA,URINE FEW /hpf (FEW); HYALINE CASTS,URINE 20-30 /lpf (0-5); MUCUS,URINE NOT SEEN /hpf (FEW)
[2023-01-19] MEDS ORDERED: Warfarin 4 MG Tab PO ONE (14:05)
[2023-01-19] MEDS ORDERED: Aspirin 81 MG Tab.Chew PO ONE (16:56)
[2023-01-19] MEDS ORDERED: Metoprolol Succinate 50 MG Tab.ER PO ONE (16:57)
[2023-01-19] MEDS ORDERED: Heparin Sodium 5,000 Units/ML Vial IVPUSH ONE (16:59)
[2023-01-19] MEDS ORDERED: Heparin Sodium/D5W 25,000 UNITS/500 ML BAG IV SCH (17:00)
[2023-01-19 19:25] VITALS: BP 91/74; PULSE 118
== END 2023-01-19 22:50 ==
LOC: JD.ED 11:01
DX: I21.4 Non-ST elevation (NSTEMI) myocardial infarction (principal); I48.91 Unspecified atrial fibrillation; I25.810 Atherosclerosis of coronary artery bypass graft(s) without angina pectoris; E78.00 Pure hypercholesterolemia, unspecified; I10 Essential (primary) hypertension; I25.2 Old myocardial infarction; E03.9 Hypothyroidism, unspecified; Z86.16 Personal history of COVID-19; Z95.2 Presence of prosthetic heart valve; Z79.02 Long term (current) use of antithrombotics/antiplatelets; Z79.01 Long term (current) use of anticoagulants; Z79.899 Other long term (current) drug therapy; Z95.5 Presence of coronary angioplasty implant and graft
CPT/HCPCS: 36415; 71045; 80053; 81001; 83605; 83735; 83880; 84484; 85025; 85610; 85730; 87040; 93005; 96361; 96365; 96366; 96375; 99291; A9270; J0282; J1644; J2405; J3490; J7030; 93010; 99285

== ENCOUNTER 2023-06-28 12:49 | Inpatient (IN) | payer MEDICARE, BC ==
[2023-06-28] MEDS ORDERED: Ondansetron 4 MG/2 ML SDV IVPUSH ONE (13:11)
[2023-06-28] MEDS ORDERED: Sodium Chloride 0.9% 10 ML Syringe FLUSH PRN (13:11)
[2023-06-28] MEDS ORDERED: Sodium Chloride 0.9% 1,000 ML IV SCH (13:15)
[2023-06-28 13:36] LABS: BASOPHILS PERCENT AUTO 0.2 % (0.0-1.0); HEMATOCRIT 34.9 % (37.0-47.0); IMMATURE GRAN ABSOLUTE AUTO 0.05 K/mm3 (0.00-0.05); IMMATURE GRAN PERCENT AUTO 1.1 % (0.0-0.4); LYMPHOCYTES PERCENT AUTO 20.9 % (24.0-44.0); MEAN CORPUSCULAR HEMOGLOBIN 30.8 pg (28.0-32.0); MEAN CORPUSCULAR HGB CONC 34.4 g/dl (32.0-36.0); MEAN CORPUSCULAR VOLUME 89.5 fl (83.0-99.0); MEAN PLATELET VOLUME 10.5 fl (9.4-12.3); MONOCYTES ABSOLUTE AUTO 0.3 K/mm3 (0.0-0.8); NEUTROPHILS ABSOLUTE AUTO 3.3 K/mm3 (1.8-7.7); NEUTROPHILS PERCENT AUTO 71.8 % (41.0-71.0); PLATELET COUNT,PLT 189 K/mm3 (150-400); WHITE BLOOD CELL COUNT,WBC 4.65 K/mm3 (3.9-11.3)
[2023-06-28 14:03] LABS: A/G RATIO 0.5 (1-2); ALBUMIN 2.8 g/dl (3.4-5.0); ANION GAP 19.3 (5-15); BILIRUBIN TOTAL 0.7 mg/dL (0.2-1.0); BUN/CREATININE RATIO 25.2 (14-18); CALCIUM 9.2 mg/dL (8.5-10.1); CREATININE 2.3 mg/dL (0.55-1.02); EST CRCL DRUG DOSING (CG) 17.25 mL/min; MAGNESIUM 2.3 mg/dL (1.8-2.4); POTASSIUM,K 3.3 mEq/L (3.5-5.1); PROTEIN TOTAL,TP 8.3 g/dl (6.4-8.2)
[2023-06-28 14:14] LABS: SLIDE REVIEW ABNORMAL SMEAR
[2023-06-28] MEDS ORDERED: Naloxone 0.4 MG/ML SDV IVPUSH PRN (15:24)
[2023-06-28] MEDS ORDERED: Ondansetron 4 MG Tab.DIS PO PRN (15:24)
[2023-06-28] MEDS ORDERED: Albuterol 0.083% 2.5 MG/3 ML Neb Soln NEB PRN (15:24)
[2023-06-28] MEDS ORDERED: Morphine 2 MG/ML SYRINGE IVPUSH PRN (15:24)
[2023-06-28] MEDS ORDERED: Dextrose 5%-0.45% NaCl 1,000 ML IV SCH ×2 (15:30→18:45)
[2023-06-28] MEDS ORDERED: Warfarin 4 MG Tab PO SCH (15:45)
[2023-06-28] MEDS ORDERED: Pantoprazole 40 MG Vial IV ONE (16:00)
[2023-06-28 16:25] LABS: INR 3.87; PROTHROMBIN TIME 37.5 SECONDS (9.7-12.0)
[2023-06-28] MEDS ORDERED: cefTRIAXone 2 GM in Sodium Chloride 0.9% 100 ML IV ONE (18:25)
[2023-06-28 19:22] LABS: INR 3.77; PROTHROMBIN TIME 36.6 SECONDS (9.7-12.0)
[2023-06-28 19:45] LABS: A/G RATIO 0.5 (1-2); ALBUMIN 2.6 g/dl (3.4-5.0); ANION GAP 18.3 (5-15); BILIRUBIN TOTAL 0.6 mg/dL (0.2-1.0); BUN/CREATININE RATIO 31.7 (14-18); CALCIUM 8.8 mg/dL (8.5-10.1); CREATININE 1.8 mg/dL (0.55-1.02); EST CRCL DRUG DOSING (CG) 22.1 mL/min; POTASSIUM,K 3.3 mEq/L (3.5-5.1); PROTEIN TOTAL,TP 7.8 g/dl (6.4-8.2)
[2023-06-28 19:46] LABS: MAGNESIUM 2.3 mg/dL (1.8-2.4)
[2023-06-28] MEDS ORDERED: Potassium Chloride 20 MEQ Tab.ER PO ONE (21:00)
[2023-06-29 00:45] LABS: APPEARANCE,URINE SLT CLOUDY (Clear); BILIRUBIN,URINE NEGATIVE (Negative); COLOR,URINE YELLOW (Yellow); GLUCOSE,URINE 2+ (Negative); KETONES,URINE NEGATIVE (Negative); LEUKOCYTE ESTERASE,URINE NEGATIVE (Negative); NITRITE,URINE NEGATIVE (Negative); OCCULT BLOOD,URINE NEGATIVE (Negative); PROTEIN,URINE 1+ (Negative); UROBILINOGEN,URINE 0.2 (0.2-1.0)
[2023-06-29 00:58] LABS: AMORPHOUS SEDIMENT,URINE FEW /hpf (NOT SEEN); BACTERIA,URINE FEW /hpf (FEW); EPITHELIAL CELLS,URINE 0-5 /hpf (0-5); MUCUS,URINE NOT SEEN /hpf (FEW); RBC,URINE 0-5 /hpf (0-5); WBC,URINE 0-5 /hpf (0-5)
[2023-06-29 05:54] LABS: BASOPHILS PERCENT AUTO 0.2 % (0.0-1.0); EOSINOPHILS PERCENT AUTO 0.3 % (0.0-6.0); HEMATOCRIT 31.7 % (37.0-47.0); HEMOGLOBIN 10.9 gm/dl (12.0-16.0); IMMATURE GRAN ABSOLUTE AUTO 0.05 K/mm3 (0.00-0.05); IMMATURE GRAN PERCENT AUTO 0.8 % (0.0-0.4); LYMPHOCYTES ABSOLUTE AUTO 1.2 K/mm3 (1.0-4.8); LYMPHOCYTES PERCENT AUTO 19.7 % (24.0-44.0); MEAN CORPUSCULAR HGB CONC 34.4 g/dl (32.0-36.0); MEAN CORPUSCULAR VOLUME 90.1 fl (83.0-99.0); MEAN PLATELET VOLUME 10.5 fl (9.4-12.3); MONOCYTES ABSOLUTE AUTO 0.4 K/mm3 (0.0-0.8); NEUTROPHILS ABSOLUTE AUTO 4.6 K/mm3 (1.8-7.7); PLATELET COUNT,PLT 172 K/mm3 (150-400); RED BLOOD CELL COUNT 3.52 M/mm3 (4.10-5.30); WHITE BLOOD CELL COUNT,WBC 6.31 K/mm3 (3.9-11.3)
[2023-06-29 06:05] LABS: A/G RATIO 0.5 (1-2); ALBUMIN 2.5 g/dl (3.4-5.0); BILIRUBIN TOTAL 0.4 mg/dL (0.2-1.0); BUN/CREATININE RATIO 29.4 (14-18); CALCIUM 8.9 mg/dL (8.5-10.1); CREATININE 1.8 mg/dL (0.55-1.02); EST CRCL DRUG DOSING (CG) 22.2 mL/min; PROTEIN TOTAL,TP 7.8 g/dl (6.4-8.2)
[2023-06-29 06:23] LABS: INR 4.09; PROTHROMBIN TIME 39.4 SECONDS (9.7-12.0)
[2023-06-29] MEDS ORDERED: Latanoprost 0.005% Ophth Soln 2.5 ML Bottle EYEBOTH SCH (09:00)
[2023-06-29] MEDS: Benzonatate 100 MG Cap PO SCH ×2 (10:07→18:15)
[2023-06-29] MEDS: Docusate Sodium 100 MG Cap PO PRN ×2 (10:08→20:25)
[2023-06-29] MEDS: Multivitamin Tab PO SCH (10:08)
[2023-06-29] MEDS: Sodium Chloride 0.9% Inhalation Soln 3 ML Neb INH SCH ×4 (10:32→21:34)
[2023-06-29] MEDS: Albuterol/Ipratropium 3.0-0.5 MG/3 ML Neb Soln NEB SCH ×4 (10:32→21:34)
[2023-06-29] MEDS ORDERED: Clopidogrel 75 MG Tab PO ONE (11:30)
[2023-06-29] MEDS ORDERED: Potassium Chloride 20 MEQ Tab.ER PO ONE (12:00)
[2023-06-29] MEDS: Levothyroxine 88 MCG Tab PO SCH (12:40)
[2023-06-29] MEDS: Rosuvastatin 10 MG Tab PO SCH (20:25)
[2023-06-30] MEDS: Benzonatate 100 MG Cap PO SCH ×2 (02:03→09:37)
[2023-06-30] MEDS: Sodium Chloride 0.9% Inhalation Soln 3 ML Neb INH SCH ×5 (02:11→18:16)
[2023-06-30] MEDS: Albuterol/Ipratropium 3.0-0.5 MG/3 ML Neb Soln NEB SCH ×6 (02:11→21:43)
[2023-06-30] MEDS: Levothyroxine 88 MCG Tab PO SCH (06:03)
[2023-06-30] MEDS: Calcitriol 0.25 MCG Cap PO SCH (09:37)
[2023-06-30] MEDS: Multivitamin Tab PO SCH (09:37)
[2023-06-30] MEDS: Clopidogrel 75 MG Tab PO SCH (09:37)
[2023-06-30] MEDS: Multivitamins with Minerals/Folic Acid/Lutein/Zeaxanth Tab PO SCH (09:46)
[2023-06-30] MEDS: Docusate Sodium 100 MG Cap PO PRN (09:46)
[2023-06-30] MEDS: Sennosides/Docusate Sodium 50-8.6 MG Tab PO PRN ×2 (09:46→20:54)
[2023-06-30 10:30] LABS: INR 4.94
[2023-06-30 10:43] LABS: C-REACTIVE PROTEIN 2.1 mg/dL (<1.0)
[2023-06-30 10:47] LABS: A/G RATIO 0.5 (1-2); ALBUMIN 2.5 g/dl (3.4-5.0); ANION GAP 17.9 (5-15); BILIRUBIN TOTAL 0.4 mg/dL (0.2-1.0); BUN/CREATININE RATIO 23.8 (14-18); CALCIUM 8.9 mg/dL (8.5-10.1); CREATININE 1.6 mg/dL (0.55-1.02); EST CRCL DRUG DOSING (CG) 25.13 mL/min; POTASSIUM,K 3.9 mEq/L (3.5-5.1); PROTEIN TOTAL,TP 7.5 g/dl (6.4-8.2)
[2023-06-30 10:48] LABS: BASOPHILS PERCENT AUTO 0.4 % (0.0-1.0); EOSINOPHILS PERCENT AUTO 0.4 % (0.0-6.0); HEMATOCRIT 30.6 % (37.0-47.0); HEMOGLOBIN 10.2 gm/dl (12.0-16.0); IMMATURE GRAN ABSOLUTE AUTO 0.09 K/mm3 (0.00-0.05); IMMATURE GRAN PERCENT AUTO 1.7 % (0.0-0.4); LYMPHOCYTES ABSOLUTE AUTO 0.9 K/mm3 (1.0-4.8); LYMPHOCYTES PERCENT AUTO 16.1 % (24.0-44.0); MEAN CORPUSCULAR HEMOGLOBIN 31.4 pg (28.0-32.0); MEAN CORPUSCULAR HGB CONC 33.3 g/dl (32.0-36.0); MEAN CORPUSCULAR VOLUME 94.2 fl (83.0-99.0); MEAN PLATELET VOLUME 10.8 fl (9.4-12.3); MONOCYTES ABSOLUTE AUTO 0.4 K/mm3 (0.0-0.8); MONOCYTES PERCENT AUTO 6.6 % (0.0-8.0); NEUTROPHILS PERCENT AUTO 74.8 % (41.0-71.0); PLATELET COUNT,PLT 187 K/mm3 (150-400); RED BLOOD CELL COUNT 3.25 M/mm3 (4.10-5.30); WHITE BLOOD CELL COUNT,WBC 5.28 K/mm3 (3.9-11.3)
[2023-06-30] MEDS: Potassium Chloride 20 MEQ Tab.ER PO SCH (11:42)
[2023-06-30] MEDS ORDERED: Polyethylene Glycol 3350 Powder 17 GM Packet PO PRN (12:00)
[2023-06-30] MEDS: cefTRIAXone 2 GM in Sodium Chloride 0.9% 100 ML IV SCH (12:05)
[2023-06-30] MEDS ORDERED: Bisacodyl 10 MG Supp RECTAL ONE (15:21)
[2023-06-30] MEDS: Ondansetron 8 MG in Sodium Chloride 0.9% 50 ML IV PRN (15:27)
[2023-06-30] MEDS ORDERED: Bisacodyl 10 MG Supp RECTAL PRN (15:32)
[2023-06-30] MEDS ORDERED: WARFARIN 2 MG PO SCH (15:34)
[2023-06-30] MEDS ORDERED: Phytonadione 5 MG Tab PO ONE (19:19)
[2023-06-30] MEDS: Rosuvastatin 10 MG Tab PO SCH (20:51)
[2023-07-01] MEDS: Albuterol/Ipratropium 3.0-0.5 MG/3 ML Neb Soln NEB SCH ×6 (02:08→22:09)
[2023-07-01] MEDS: Levothyroxine 88 MCG Tab PO SCH (06:19)
[2023-07-01 07:51] LABS: BASOPHILS PERCENT AUTO 0.3 % (0.0-1.0); EOSINOPHILS PERCENT AUTO 0.5 % (0.0-6.0); HEMATOCRIT 30.8 % (37.0-47.0); HEMOGLOBIN 10.2 gm/dl (12.0-16.0); IMMATURE GRAN ABSOLUTE AUTO 0.17 K/mm3 (0.00-0.05); IMMATURE GRAN PERCENT AUTO 2.9 % (0.0-0.4); LYMPHOCYTES ABSOLUTE AUTO 1.1 K/mm3 (1.0-4.8); MEAN CORPUSCULAR HEMOGLOBIN 30.8 pg (28.0-32.0); MEAN CORPUSCULAR HGB CONC 33.1 g/dl (32.0-36.0); MEAN CORPUSCULAR VOLUME 93.1 fl (83.0-99.0); MEAN PLATELET VOLUME 10.7 fl (9.4-12.3); MONOCYTES ABSOLUTE AUTO 0.4 K/mm3 (0.0-0.8); MONOCYTES PERCENT AUTO 6.8 % (0.0-8.0); NEUTROPHILS ABSOLUTE AUTO 4.1 K/mm3 (1.8-7.7); NEUTROPHILS PERCENT AUTO 70.5 % (41.0-71.0); PLATELET COUNT,PLT 189 K/mm3 (150-400); RED BLOOD CELL COUNT 3.31 M/mm3 (4.10-5.30); WHITE BLOOD CELL COUNT,WBC 5.88 K/mm3 (3.9-11.3)
[2023-07-01 08:09] LABS: INR 4.77; PROTHROMBIN TIME 45.5 SECONDS (9.7-12.0)
[2023-07-01 08:23] LABS: A/G RATIO 0.5 (1-2); ALBUMIN 2.4 g/dl (3.4-5.0); ANION GAP 15.8 (5-15); BILIRUBIN TOTAL 0.4 mg/dL (0.2-1.0); BUN/CREATININE RATIO 18.6 (14-18); C-REACTIVE PROTEIN 1.4 mg/dL (<1.0); CALCIUM 8.6 mg/dL (8.5-10.1); CREATININE 1.4 mg/dL (0.55-1.02); EST CRCL DRUG DOSING (CG) 28.72 mL/min; MAGNESIUM 1.8 mg/dL (1.8-2.4); POTASSIUM,K 3.8 mEq/L (3.5-5.1); PROTEIN TOTAL,TP 7.2 g/dl (6.4-8.2)
[2023-07-01] MEDS: Clopidogrel 75 MG Tab PO SCH (08:57)
[2023-07-01] MEDS: Potassium Chloride 20 MEQ Tab.ER PO SCH (08:57)
[2023-07-01] MEDS: Multivitamins with Minerals/Folic Acid/Lutein/Zeaxanth Tab PO SCH (08:57)
[2023-07-01] MEDS: Multivitamin Tab PO SCH (08:57)
[2023-07-01] MEDS: cefTRIAXone 2 GM in Sodium Chloride 0.9% 100 ML IV SCH (12:27)
[2023-07-01] MEDS: Rosuvastatin 10 MG Tab PO SCH (20:35)
[2023-07-02] MEDS: Albuterol/Ipratropium 3.0-0.5 MG/3 ML Neb Soln NEB SCH ×6 (03:09→21:57)
[2023-07-02 05:30] LABS: BASOPHILS PERCENT AUTO 0.6 % (0.0-1.0); EOSINOPHILS ABSOLUTE AUTO 0.1 K/mm3 (0.0-0.4); EOSINOPHILS PERCENT AUTO 2.4 % (0.0-6.0); HEMATOCRIT 29.2 % (37.0-47.0); HEMOGLOBIN 9.7 gm/dl (12.0-16.0); IMMATURE GRAN ABSOLUTE AUTO 0.27 K/mm3 (0.00-0.05); IMMATURE GRAN PERCENT AUTO 5.3 % (0.0-0.4); LYMPHOCYTES ABSOLUTE AUTO 1.1 K/mm3 (1.0-4.8); LYMPHOCYTES PERCENT AUTO 21.8 % (24.0-44.0); MEAN CORPUSCULAR HEMOGLOBIN 30.3 pg (28.0-32.0); MEAN CORPUSCULAR HGB CONC 33.2 g/dl (32.0-36.0); MEAN CORPUSCULAR VOLUME 91.3 fl (83.0-99.0); MEAN PLATELET VOLUME 10.6 fl (9.4-12.3); MONOCYTES ABSOLUTE AUTO 0.4 K/mm3 (0.0-0.8); MONOCYTES PERCENT AUTO 8.6 % (0.0-8.0); NEUTROPHILS ABSOLUTE AUTO 3.1 K/mm3 (1.8-7.7); NEUTROPHILS PERCENT AUTO 61.3 % (41.0-71.0); PLATELET COUNT,PLT 182 K/mm3 (150-400); WHITE BLOOD CELL COUNT,WBC 5.09 K/mm3 (3.9-11.3)
[2023-07-02 05:52] LABS: A/G RATIO 0.5 (1-2); ALBUMIN 2.3 g/dl (3.4-5.0); ANION GAP 17.3 (5-15); BILIRUBIN TOTAL 0.4 mg/dL (0.2-1.0); BUN/CREATININE RATIO 13.6 (14-18); CALCIUM 8.8 mg/dL (8.5-10.1); CREATININE 1.4 mg/dL (0.55-1.02); EST CRCL DRUG DOSING (CG) 28.72 mL/min; POTASSIUM,K 4.3 mEq/L (3.5-5.1)
[2023-07-02 06:02] LABS: SLIDE REVIEW ABNORMAL SMEAR
[2023-07-02] MEDS: Levothyroxine 88 MCG Tab PO SCH (06:13)
[2023-07-02] MEDS: Multivitamins with Minerals/Folic Acid/Lutein/Zeaxanth Tab PO SCH (08:45)
[2023-07-02] MEDS: Multivitamin Tab PO SCH (08:46)
[2023-07-02] MEDS: Potassium Chloride 20 MEQ Tab.ER PO SCH (08:46)
[2023-07-02] MEDS: Clopidogrel 75 MG Tab PO SCH (08:46)
[2023-07-02] MEDS: Sennosides/Docusate Sodium 50-8.6 MG Tab PO PRN (08:55)
[2023-07-02] MEDS: Simethicone 80 MG Tab.Chew PO PRN ×2 (13:00→18:55)
[2023-07-02] MEDS: cefTRIAXone 2 GM in Sodium Chloride 0.9% 100 ML IV SCH (13:00)
[2023-07-02] MEDS: Amiodarone 200 MG Tab PO SCH (13:55)
[2023-07-02] MEDS: Rosuvastatin 10 MG Tab PO SCH (20:33)
[2023-07-02] MEDS: Acetaminophen 325 MG Tab PO PRN (20:33)
[2023-07-03] MEDS: Albuterol/Ipratropium 3.0-0.5 MG/3 ML Neb Soln NEB SCH ×2 (02:14→06:15)
[2023-07-03 05:41] LABS: BASOPHILS ABSOLUTE AUTO 0.1 K/mm3 (0.0-0.2); BASOPHILS PERCENT AUTO 0.9 % (0.0-1.0); EOSINOPHILS ABSOLUTE AUTO 0.2 K/mm3 (0.0-0.4); EOSINOPHILS PERCENT AUTO 3.8 % (0.0-6.0); HEMATOCRIT 30.1 % (37.0-47.0); IMMATURE GRAN ABSOLUTE AUTO 0.37 K/mm3 (0.00-0.05); IMMATURE GRAN PERCENT AUTO 6.6 % (0.0-0.4); LYMPHOCYTES ABSOLUTE AUTO 1.5 K/mm3 (1.0-4.8); LYMPHOCYTES PERCENT AUTO 27.1 % (24.0-44.0); MEAN CORPUSCULAR HEMOGLOBIN 30.9 pg (28.0-32.0); MEAN CORPUSCULAR HGB CONC 33.2 g/dl (32.0-36.0); MEAN CORPUSCULAR VOLUME 92.9 fl (83.0-99.0); MEAN PLATELET VOLUME 10.8 fl (9.4-12.3); MONOCYTES ABSOLUTE AUTO 0.5 K/mm3 (0.0-0.8); MONOCYTES PERCENT AUTO 8.8 % (0.0-8.0); NEUTROPHILS PERCENT AUTO 52.8 % (41.0-71.0); PLATELET COUNT,PLT 182 K/mm3 (150-400); RED BLOOD CELL COUNT 3.24 M/mm3 (4.10-5.30); WHITE BLOOD CELL COUNT,WBC 5.58 K/mm3 (3.9-11.3)
[2023-07-03 05:45] LABS: A/G RATIO 0.5 (1-2); ALBUMIN 2.5 g/dl (3.4-5.0); ANION GAP 17.5 (5-15); BILIRUBIN TOTAL 0.4 mg/dL (0.2-1.0); C-REACTIVE PROTEIN 0.6 mg/dL (<1.0); CREATININE 1.2 mg/dL (0.55-1.02); EST CRCL DRUG DOSING (CG) 33.51 mL/min; POTASSIUM,K 4.5 mEq/L (3.5-5.1); PROTEIN TOTAL,TP 7.2 g/dl (6.4-8.2)
[2023-07-03] MEDS: Levothyroxine 88 MCG Tab PO SCH (06:03)
[2023-07-03 06:32] LABS: INR 1.39
[2023-07-03 06:33] LABS: PROTHROMBIN TIME 14.5 SECONDS (9.7-12.0); SLIDE REVIEW ABNORMAL SMEAR
[2023-07-03] MEDS: Multivitamins with Minerals/Folic Acid/Lutein/Zeaxanth Tab PO SCH (08:37)
[2023-07-03] MEDS: Sennosides/Docusate Sodium 50-8.6 MG Tab PO PRN (08:37)
[2023-07-03] MEDS: Clopidogrel 75 MG Tab PO SCH (08:37)
[2023-07-03] MEDS: Potassium Chloride 20 MEQ Tab.ER PO SCH (08:37)
[2023-07-03] MEDS: Amiodarone 200 MG Tab PO SCH (08:37)
[2023-07-03] MEDS: Multivitamin Tab PO SCH (08:37)
[2023-07-03] MEDS: Calcitriol 0.25 MCG Cap PO SCH (08:40)
[2023-07-03] MEDS: Simethicone 80 MG Tab.Chew PO PRN (09:44)
[2023-07-03] MEDS: cefTRIAXone 2 GM in Sodium Chloride 0.9% 100 ML IV SCH (11:37)
[2023-07-03] MEDS ORDERED: Warfarin 4 MG Tab PO SCH (18:00)
[2023-07-03] MEDS: Rosuvastatin 10 MG Tab PO SCH (20:45)
[2023-07-04 05:31] LABS: A/G RATIO 0.5 (1-2); ALBUMIN 2.4 g/dl (3.4-5.0); ANION GAP 17.1 (5-15); BILIRUBIN TOTAL 0.5 mg/dL (0.2-1.0); BUN/CREATININE RATIO 16.4 (14-18); CALCIUM 8.8 mg/dL (8.5-10.1); CREATININE 1.1 mg/dL (0.55-1.02); EST CRCL DRUG DOSING (CG) 36.55 mL/min; POTASSIUM,K 4.1 mEq/L (3.5-5.1)
[2023-07-04 05:53] LABS: BASOPHILS PERCENT AUTO 0.5 % (0.0-1.0); EOSINOPHILS ABSOLUTE AUTO 0.2 K/mm3 (0.0-0.4); EOSINOPHILS PERCENT AUTO 3.7 % (0.0-6.0); HEMATOCRIT 30.4 % (37.0-47.0); IMMATURE GRAN ABSOLUTE AUTO 0.35 K/mm3 (0.00-0.05); IMMATURE GRAN PERCENT AUTO 5.7 % (0.0-0.4); LYMPHOCYTES ABSOLUTE AUTO 1.4 K/mm3 (1.0-4.8); MEAN CORPUSCULAR HEMOGLOBIN 30.5 pg (28.0-32.0); MEAN CORPUSCULAR HGB CONC 32.9 g/dl (32.0-36.0); MEAN CORPUSCULAR VOLUME 92.7 fl (83.0-99.0); MEAN PLATELET VOLUME 10.7 fl (9.4-12.3); MONOCYTES ABSOLUTE AUTO 0.5 K/mm3 (0.0-0.8); NEUTROPHILS ABSOLUTE AUTO 3.7 K/mm3 (1.8-7.7); NEUTROPHILS PERCENT AUTO 60.1 % (41.0-71.0); PLATELET COUNT,PLT 187 K/mm3 (150-400); RED BLOOD CELL COUNT 3.28 M/mm3 (4.10-5.30); WHITE BLOOD CELL COUNT,WBC 6.14 K/mm3 (3.9-11.3)
[2023-07-04 06:10] LABS: INR 1.31; PROTHROMBIN TIME 13.7 SECONDS (9.7-12.0)
[2023-07-04] MEDS: Levothyroxine 88 MCG Tab PO SCH (06:14)
[2023-07-04 06:36] LABS: SLIDE REVIEW ABNORMAL SMEAR
[2023-07-04] MEDS: Potassium Chloride 20 MEQ Tab.ER PO SCH (08:56)
[2023-07-04] MEDS: Amiodarone 200 MG Tab PO SCH (08:56)
[2023-07-04] MEDS: Multivitamin Tab PO SCH (08:56)
[2023-07-04] MEDS: Multivitamins with Minerals/Folic Acid/Lutein/Zeaxanth Tab PO SCH (08:56)
[2023-07-04] MEDS: Clopidogrel 75 MG Tab PO SCH (08:56)
[2023-07-04] MEDS: Heparin Sodium 5,000 Units/ML Vial SUBCUT SCH ×2 (08:57→18:02)
[2023-07-04] MEDS: Acetaminophen 325 MG Tab PO PRN (09:14)
[2023-07-04] MEDS: Ondansetron 8 MG in Sodium Chloride 0.9% 50 ML IV PRN (10:05)
[2023-07-04] MEDS: cefTRIAXone 2 GM in Sodium Chloride 0.9% 100 ML IV SCH (13:10)
[2023-07-04] MEDS ORDERED: Warfarin 4 MG Tab PO SCH (18:00)
[2023-07-04] MEDS: Rosuvastatin 10 MG Tab PO SCH (20:00)
[2023-07-05] MEDS: Heparin Sodium 5,000 Units/ML Vial SUBCUT SCH ×3 (00:01→17:45)
[2023-07-05 05:36] LABS: A/G RATIO 0.5 (1-2); ALBUMIN 2.5 g/dl (3.4-5.0); ANION GAP 16.4 (5-15); BILIRUBIN TOTAL 0.4 mg/dL (0.2-1.0); BUN/CREATININE RATIO 15.4 (14-18); CALCIUM 8.6 mg/dL (8.5-10.1); CREATININE 1.3 mg/dL (0.55-1.02); EST CRCL DRUG DOSING (CG) 30.93 mL/min; POTASSIUM,K 4.4 mEq/L (3.5-5.1); PROTEIN TOTAL,TP 7.4 g/dl (6.4-8.2)
[2023-07-05 06:09] LABS: BASOPHILS PERCENT AUTO 0.5 % (0.0-1.0); EOSINOPHILS ABSOLUTE AUTO 0.1 K/mm3 (0.0-0.4); EOSINOPHILS PERCENT AUTO 1.5 % (0.0-6.0); HEMOGLOBIN 9.6 gm/dl (12.0-16.0); IMMATURE GRAN ABSOLUTE AUTO 0.34 K/mm3 (0.00-0.05); IMMATURE GRAN PERCENT AUTO 5.7 % (0.0-0.4); LYMPHOCYTES ABSOLUTE AUTO 1.6 K/mm3 (1.0-4.8); LYMPHOCYTES PERCENT AUTO 26.3 % (24.0-44.0); MEAN CORPUSCULAR HEMOGLOBIN 30.5 pg (28.0-32.0); MEAN CORPUSCULAR HGB CONC 33.1 g/dl (32.0-36.0); MEAN CORPUSCULAR VOLUME 92.1 fl (83.0-99.0); MEAN PLATELET VOLUME 11.5 fl (9.4-12.3); MONOCYTES ABSOLUTE AUTO 0.5 K/mm3 (0.0-0.8); MONOCYTES PERCENT AUTO 8.4 % (0.0-8.0); NEUTROPHILS ABSOLUTE AUTO 3.5 K/mm3 (1.8-7.7); NEUTROPHILS PERCENT AUTO 57.6 % (41.0-71.0); PLATELET COUNT,PLT 188 K/mm3 (150-400); RED BLOOD CELL COUNT 3.15 M/mm3 (4.10-5.30); WHITE BLOOD CELL COUNT,WBC 5.98 K/mm3 (3.9-11.3)
[2023-07-05 06:18] LABS: INR 1.69; PROTHROMBIN TIME 17.4 SECONDS (9.7-12.0)
[2023-07-05] MEDS: Levothyroxine 88 MCG Tab PO SCH (06:46)
[2023-07-05 07:27] LABS: SLIDE REVIEW ABNORMAL SMEAR
[2023-07-05] MEDS: Amiodarone 200 MG Tab PO SCH (08:18)
[2023-07-05] MEDS: Multivitamins with Minerals/Folic Acid/Lutein/Zeaxanth Tab PO SCH (08:18)
[2023-07-05] MEDS: Acetaminophen 325 MG Tab PO PRN (08:18)
[2023-07-05] MEDS: Clopidogrel 75 MG Tab PO SCH (08:19)
[2023-07-05] MEDS: Multivitamin Tab PO SCH (08:19)
[2023-07-05] MEDS: Potassium Chloride 20 MEQ Tab.ER PO SCH (09:21)
[2023-07-05] MEDS ORDERED: Benzocaine 20% Topical Spray UD MUCMEM ONE (12:28)
[2023-07-05] MEDS: Rosuvastatin 10 MG Tab PO SCH (20:29)
[2023-07-06] MEDS: Heparin Sodium 5,000 Units/ML Vial SUBCUT SCH ×2 (01:45→08:53)
[2023-07-06] MEDS: Levothyroxine 88 MCG Tab PO SCH (05:03)
[2023-07-06 05:25] LABS: A/G RATIO 0.6 (1-2); ALBUMIN 2.4 g/dl (3.4-5.0); ANION GAP 16.3 (5-15); BILIRUBIN TOTAL 0.4 mg/dL (0.2-1.0); BUN/CREATININE RATIO 14.6 (14-18); CALCIUM 8.7 mg/dL (8.5-10.1); CREATININE 1.3 mg/dL (0.55-1.02); EST CRCL DRUG DOSING (CG) 30.93 mL/min; POTASSIUM,K 4.3 mEq/L (3.5-5.1); PROTEIN TOTAL,TP 6.8 g/dl (6.4-8.2)
[2023-07-06 05:46] LABS: BASOPHILS PERCENT AUTO 0.4 % (0.0-1.0); EOSINOPHILS ABSOLUTE AUTO 0.1 K/mm3 (0.0-0.4); EOSINOPHILS PERCENT AUTO 1.1 % (0.0-6.0); HEMATOCRIT 28.5 % (37.0-47.0); HEMOGLOBIN 9.4 gm/dl (12.0-16.0); IMMATURE GRAN ABSOLUTE AUTO 0.24 K/mm3 (0.00-0.05); IMMATURE GRAN PERCENT AUTO 4.3 % (0.0-0.4); LYMPHOCYTES ABSOLUTE AUTO 1.5 K/mm3 (1.0-4.8); LYMPHOCYTES PERCENT AUTO 26.7 % (24.0-44.0); MEAN CORPUSCULAR HEMOGLOBIN 30.6 pg (28.0-32.0); MEAN CORPUSCULAR VOLUME 92.8 fl (83.0-99.0); MEAN PLATELET VOLUME 11.3 fl (9.4-12.3); MONOCYTES ABSOLUTE AUTO 0.5 K/mm3 (0.0-0.8); MONOCYTES PERCENT AUTO 9.4 % (0.0-8.0); NEUTROPHILS ABSOLUTE AUTO 3.2 K/mm3 (1.8-7.7); NEUTROPHILS PERCENT AUTO 58.1 % (41.0-71.0); PLATELET COUNT,PLT 173 K/mm3 (150-400); RED BLOOD CELL COUNT 3.07 M/mm3 (4.10-5.30); WHITE BLOOD CELL COUNT,WBC 5.55 K/mm3 (3.9-11.3)
[2023-07-06 06:00] LABS: INR 2.21; PROTHROMBIN TIME 22.3 SECONDS (9.7-12.0)
[2023-07-06 06:22] LABS: SLIDE REVIEW ABNORMAL SMEAR
[2023-07-06] MEDS: Ondansetron 8 MG in Sodium Chloride 0.9% 50 ML IV PRN (08:52)
[2023-07-06] MEDS: Potassium Chloride 20 MEQ Tab.ER PO SCH (08:59)
[2023-07-06] MEDS: Multivitamins with Minerals/Folic Acid/Lutein/Zeaxanth Tab PO SCH (08:59)
[2023-07-06] MEDS: Clopidogrel 75 MG Tab PO SCH (08:59)
[2023-07-06] MEDS: Amiodarone 200 MG Tab PO SCH (08:59)
[2023-07-06] MEDS: Multivitamin Tab PO SCH (09:00)
[2023-07-06] MEDS: Rosuvastatin 10 MG Tab PO SCH (21:16)
[2023-07-07 05:47] LABS: BASOPHILS PERCENT AUTO 0.4 % (0.0-1.0); EOSINOPHILS PERCENT AUTO 0.6 % (0.0-6.0); HEMOGLOBIN 8.9 gm/dl (12.0-16.0); IMMATURE GRAN ABSOLUTE AUTO 0.17 K/mm3 (0.00-0.05); IMMATURE GRAN PERCENT AUTO 3.1 % (0.0-0.4); LYMPHOCYTES ABSOLUTE AUTO 1.4 K/mm3 (1.0-4.8); LYMPHOCYTES PERCENT AUTO 25.7 % (24.0-44.0); MEAN CORPUSCULAR HEMOGLOBIN 30.6 pg (28.0-32.0); MEAN CORPUSCULAR VOLUME 92.8 fl (83.0-99.0); MEAN PLATELET VOLUME 11.1 fl (9.4-12.3); MONOCYTES ABSOLUTE AUTO 0.5 K/mm3 (0.0-0.8); MONOCYTES PERCENT AUTO 9.1 % (0.0-8.0); NEUTROPHILS ABSOLUTE AUTO 3.3 K/mm3 (1.8-7.7); NEUTROPHILS PERCENT AUTO 61.1 % (41.0-71.0); PLATELET COUNT,PLT 174 K/mm3 (150-400); RED BLOOD CELL COUNT 2.91 M/mm3 (4.10-5.30); WHITE BLOOD CELL COUNT,WBC 5.41 K/mm3 (3.9-11.3)
[2023-07-07 05:49] LABS: A/G RATIO 0.6 (1-2); ALBUMIN 2.4 g/dl (3.4-5.0); ANION GAP 13.4 (5-15); BILIRUBIN TOTAL 0.5 mg/dL (0.2-1.0); BUN/CREATININE RATIO 17.7 (14-18); CALCIUM 8.8 mg/dL (8.5-10.1); CREATININE 1.3 mg/dL (0.55-1.02); EST CRCL DRUG DOSING (CG) 30.93 mL/min; POTASSIUM,K 4.4 mEq/L (3.5-5.1); PROTEIN TOTAL,TP 6.7 g/dl (6.4-8.2)
[2023-07-07 05:58] LABS: INR 2.45; PROTHROMBIN TIME 24.5 SECONDS (9.7-12.0)
[2023-07-07 06:36] LABS: SLIDE REVIEW ABNORMAL SMEAR
[2023-07-07] MEDS: Levothyroxine 88 MCG Tab PO SCH (06:50)
[2023-07-07] MEDS: Multivitamin Tab PO SCH (08:39)
[2023-07-07] MEDS: Clopidogrel 75 MG Tab PO SCH (08:39)
[2023-07-07] MEDS: Amiodarone 200 MG Tab PO SCH (08:39)
[2023-07-07] MEDS: Multivitamins with Minerals/Folic Acid/Lutein/Zeaxanth Tab PO SCH (08:39)
[2023-07-07] MEDS: Potassium Chloride 20 MEQ Tab.ER PO SCH (08:39)
[2023-07-07] MEDS: Calcitriol 0.25 MCG Cap PO SCH (08:41)
[2023-07-07] MEDS: Sennosides/Docusate Sodium 50-8.6 MG Tab PO PRN (09:17)
[2023-07-07 15:26] VITALS: BP 119/73; PULSE 64
== END 2023-07-07 15:14 | disposition home or self-care (01) | DRG 281 ==
LOC: JD.ED 12:49 → JD.MS 15:18
PROVIDERS: ADMIT Pediatrics; ATTEND Pediatrics
DX: I50.23 Acute on chronic systolic (congestive) heart failure (principal); I21.4 Non-ST elevation (NSTEMI) myocardial infarction; E44.1 Mild protein-calorie malnutrition; N18.4 Chronic kidney disease, stage 4 (severe); I42.9 Cardiomyopathy, unspecified; I25.10 Atherosclerotic heart disease of native coronary artery without angina pectoris; D63.1 Anemia in chronic kidney disease; I25.5 Ischemic cardiomyopathy; I48.0 Paroxysmal atrial fibrillation; E03.9 Hypothyroidism, unspecified; E78.00 Pure hypercholesterolemia, unspecified; K43.9 Ventral hernia without obstruction or gangrene; I12.9 Hypertensive chronic kidney disease with stage 1 through stage 4 chronic kidney disease, or unspecified chronic kidney disease; U09.9 Post COVID-19 condition, unspecified; E86.0 Dehydration; Z90.49 Acquired absence of other specified parts of digestive tract; Z87.442 Personal history of urinary calculi; Z95.0 Presence of cardiac pacemaker; Z95.1 Presence of aortocoronary bypass graft; Z79.899 Other long term (current) drug therapy; Z68.21 Body mass index [BMI] 21.0-21.9, adult; I25.2 Old myocardial infarction; Z95.2 Presence of prosthetic heart valve; Z79.890 Hormone replacement therapy; Z79.01 Long term (current) use of anticoagulants
CPT/HCPCS: 36415; 71045; 71045-26; 71250; 71250-26; 80053; 81001; 82150; 83605; 83690; 83735; 83880; 84443; 84484; 85025; 85379; 85610; 85730; 86140; 87040; 93005; 93010; 94640; 94667; 94668; 94760; 94761; 96361; 96374; 97110-GP; 97116-GP; 97162-GP; 99285; 99285-25; A9270-GY; C9113; J0696; J1644; J2405; J3490; J7030; J7042; J7620-GY

== ENCOUNTER 2023-08-05 21:43 | Inpatient (IN) | payer MEDICARE, BC ==
[2023-08-05] MEDS ORDERED: Aspirin 81 MG Tab.Chew PO ONE (21:55)
[2023-08-05] MEDS ORDERED: Sodium Chloride 0.9% 10 ML Syringe FLUSH PRN (21:55)
[2023-08-05 22:27] LABS: BASOPHILS PERCENT AUTO 0.2 % (0.0-1.0); EOSINOPHILS ABSOLUTE AUTO 0.1 K/mm3 (0.0-0.4); EOSINOPHILS PERCENT AUTO 1.5 % (0.0-6.0); HEMOGLOBIN 9.1 gm/dl (12.0-16.0); IMMATURE GRAN ABSOLUTE AUTO 0.03 K/mm3 (0.00-0.05); IMMATURE GRAN PERCENT AUTO 0.3 % (0.0-0.4); LYMPHOCYTES ABSOLUTE AUTO 1.4 K/mm3 (1.0-4.8); LYMPHOCYTES PERCENT AUTO 14.2 % (24.0-44.0); MEAN CORPUSCULAR HEMOGLOBIN 32.2 pg (28.0-32.0); MEAN CORPUSCULAR HGB CONC 32.5 g/dl (32.0-36.0); MEAN CORPUSCULAR VOLUME 98.9 fl (83.0-99.0); MEAN PLATELET VOLUME 10.6 fl (9.4-12.3); MONOCYTES ABSOLUTE AUTO 0.4 K/mm3 (0.0-0.8); MONOCYTES PERCENT AUTO 4.5 % (0.0-8.0); NEUTROPHILS ABSOLUTE AUTO 7.6 K/mm3 (1.8-7.7); NEUTROPHILS PERCENT AUTO 79.3 % (41.0-71.0); PLATELET COUNT,PLT 156 K/mm3 (150-400); RED BLOOD CELL COUNT 2.83 M/mm3 (4.10-5.30); WHITE BLOOD CELL COUNT,WBC 9.58 K/mm3 (3.9-11.3)
[2023-08-05 22:32] LABS: INR 1.45; PROTHROMBIN TIME 15.1 SECONDS (9.7-12.0)
[2023-08-05 22:36] LABS: D-DIMER QUANTITATIVE 3.06 mg/L (0.19-0.50)
[2023-08-05 22:45] LABS: A/G RATIO 0.6 (1-2); ALBUMIN 2.9 g/dl (3.4-5.0); ANION GAP 18.7 (5-15); CALCIUM 8.5 mg/dL (8.5-10.1); CREATININE 1.2 mg/dL (0.55-1.02); EST CRCL DRUG DOSING (CG) 33.51 mL/min; MAGNESIUM 1.8 mg/dL (1.8-2.4); POTASSIUM,K 3.7 mEq/L (3.5-5.1); PROTEIN TOTAL,TP 7.6 g/dl (6.4-8.2)
[2023-08-06] MEDS ORDERED: Warfarin 4 MG Tab PO ONE (00:23)
[2023-08-06] MEDS ORDERED: Enoxaparin 80 MG/0.8 ML Syringe SUBCUT ONE (00:25)
[2023-08-06] MEDS ORDERED: Sodium Chloride 0.9% 100 ML IV SCH (00:30)
[2023-08-06] MEDS ORDERED: Sodium Chloride 0.9% 10 ML Syringe FLUSH ONE (00:30)
[2023-08-06] MEDS ORDERED: Iopamidol 755 Mg/ML 100 ML Bottle IVPUSH ONE (00:30)
[2023-08-06] MEDS ORDERED: Potassium Chloride 20 MEQ Tab.ER PO ONE (02:33)
[2023-08-06] MEDS ORDERED: Furosemide 20 MG/2 ML VIAL IVPUSH ONE (03:00)
[2023-08-06 05:47] LABS: CORONAVIRUS COVID-19 NAA NEGATIVE (NEGATIVE); INFLUENZA A NAA NEGATIVE (NEGATIVE); RESPIRATORY SYNCYTIAL VIR NAA NEGATIVE (NEGATIVE)
[2023-08-06] MEDS ORDERED: Ondansetron 4 MG/2 ML SDV IV PRN (09:17)
[2023-08-06] MEDS ORDERED: Ondansetron 4 MG Tab.DIS PO PRN (09:17)
[2023-08-06] MEDS ORDERED: Acetaminophen 325 MG Tab PO PRN (09:17)
[2023-08-06] MEDS ORDERED: Albuterol/Ipratropium 3.0-0.5 MG/3 ML Neb Soln NEB PRN (09:17)
[2023-08-06] MEDS ORDERED: Warfarin 4 MG Tab PO SCH (09:30)
[2023-08-06 10:00] LABS: INR 1.53; PROTHROMBIN TIME 15.9 SECONDS (9.7-12.0)
[2023-08-06] MEDS: Docusate Sodium 100 MG Cap PO PRN (10:00)
[2023-08-06] MEDS ORDERED: Polyethylene Glycol 3350 Powder 17 GM Packet PO PRN (14:41)
[2023-08-06] MEDS ORDERED: Furosemide 40 MG/4 ML VIAL IVPUSH SCH (21:00)
[2023-08-06] MEDS ORDERED: Rosuvastatin 10 MG Tab PO SCH (21:00)
[2023-08-07 05:39] LABS: HEMATOCRIT 29.1 % (37.0-47.0); HEMOGLOBIN 9.8 gm/dl (12.0-16.0); MEAN CORPUSCULAR HEMOGLOBIN 32.8 pg (28.0-32.0); MEAN CORPUSCULAR HGB CONC 33.7 g/dl (32.0-36.0); MEAN CORPUSCULAR VOLUME 97.3 fl (83.0-99.0); MEAN PLATELET VOLUME 11.1 fl (9.4-12.3); PLATELET COUNT,PLT 173 K/mm3 (150-400); RED BLOOD CELL COUNT 2.99 M/mm3 (4.10-5.30); WHITE BLOOD CELL COUNT,WBC 6.06 K/mm3 (3.9-11.3)
[2023-08-07 05:57] LABS: BUN/CREATININE RATIO 21.3 (14-18); CREATININE 1.5 mg/dL (0.55-1.02)
[2023-08-07 06:17] LABS: EST CRCL DRUG DOSING (CG) 26.41 mL/min
[2023-08-07] MEDS: Docusate Sodium 100 MG Cap PO PRN (08:14)
[2023-08-07] MEDS ORDERED: Clopidogrel 75 MG Tab PO SCH (09:00)
[2023-08-07] MEDS ORDERED: Amiodarone 200 MG Tab PO SCH (09:00)
[2023-08-07] MEDS ORDERED: Mirtazapine 15 MG Tab PO SCH (09:00)
[2023-08-07] MEDS ORDERED: Allopurinol 100 MG Tab PO SCH (09:00)
[2023-08-07] MEDS ORDERED: Sennosides 8.6 MG Tab PO SCH (09:00)
[2023-08-07] MEDS ORDERED: Levothyroxine 88 MCG Tab PO SCH (09:00)
[2023-08-07 10:39] VITALS: BP 112/76; PULSE 76
[2023-08-07] MEDS ORDERED: Warfarin 4 MG Tab PO SCH (18:00)
== END 2023-08-07 10:43 | disposition home health service (06) | DRG 189 ==
LOC: JD.ED 21:43 → JD.MS 08-06 08:47
PROVIDERS: ADMIT Hospitalist; ATTEND Hospitalist
DX: J96.01 Acute respiratory failure with hypoxia (principal); I11.0 Hypertensive heart disease with heart failure; I50.23 Acute on chronic systolic (congestive) heart failure; I13.0 Hypertensive heart and chronic kidney disease with heart failure and stage 1 through stage 4 chronic kidney disease, or unspecified chronic kidney disease; N18.30 Chronic kidney disease, stage 3 unspecified; E78.00 Pure hypercholesterolemia, unspecified; I25.10 Atherosclerotic heart disease of native coronary artery without angina pectoris; I10 Essential (primary) hypertension; E03.9 Hypothyroidism, unspecified; I25.2 Old myocardial infarction; D63.1 Anemia in chronic kidney disease; I48.0 Paroxysmal atrial fibrillation; R79.1 Abnormal coagulation profile; Z88.8 Allergy status to other drugs, medicaments and biological substances; Z20.822 Contact with and (suspected) exposure to COVID-19; Z99.81 Dependence on supplemental oxygen; Z86.16 Personal history of COVID-19; Z90.49 Acquired absence of other specified parts of digestive tract; Z99.89 Dependence on other enabling machines and devices; Z79.02 Long term (current) use of antithrombotics/antiplatelets; Z79.01 Long term (current) use of anticoagulants; Z95.5 Presence of coronary angioplasty implant and graft; Z87.442 Personal history of urinary calculi; Z11.52 Encounter for screening for COVID-19; Z79.890 Hormone replacement therapy; Z79.899 Other long term (current) drug therapy
CPT/HCPCS: 0241U; 36415; 71045; 71275; 80048; 80053; 83735; 83880; 84145; 84484; 85025; 85027; 85379; 85610; 93005; 94761; 96374; 99285; 93010; A9270-GY; J1650; J1940; J3490; Q9967

== ENCOUNTER 2023-11-20 09:50 | Emergency (ER) | payer MEDICARE, BC ==
[2023-11-20 10:23] LABS: BASOPHILS PERCENT AUTO 0.1 % (0.0-1.0); HEMATOCRIT 33.6 % (37.0-47.0); HEMOGLOBIN 10.9 gm/dl (12.0-16.0); IMMATURE GRAN ABSOLUTE AUTO 0.04 K/mm3 (0.00-0.05); IMMATURE GRAN PERCENT AUTO 0.5 % (0.0-0.4); LYMPHOCYTES PERCENT AUTO 14.1 % (24.0-44.0); MEAN CORPUSCULAR HGB CONC 32.4 g/dl (32.0-36.0); MEAN CORPUSCULAR VOLUME 98.5 fl (83.0-99.0); MEAN PLATELET VOLUME 9.9 fl (9.4-12.3); MONOCYTES ABSOLUTE AUTO 0.7 K/mm3 (0.0-0.8); MONOCYTES PERCENT AUTO 8.9 % (0.0-8.0); NEUTROPHILS ABSOLUTE AUTO 5.6 K/mm3 (1.8-7.7); NEUTROPHILS PERCENT AUTO 76.4 % (41.0-71.0); PLATELET COUNT,PLT 200 K/mm3 (150-400); RED BLOOD CELL COUNT 3.41 M/mm3 (4.10-5.30); WHITE BLOOD CELL COUNT,WBC 7.31 K/mm3 (3.9-11.3)
[2023-11-20] MEDS: Dextrose 5%-0.9% NaCl 1,000 ML IV SCH (10:36)
[2023-11-20 10:47] LABS: INR 2.92; PROTHROMBIN TIME 28.9 SECONDS (9.7-12.0)
[2023-11-20 10:48] LABS: PTT,PARTIAL THROMBOPLSTIN TIME 43.6 SECONDS (21.7-31.4)
[2023-11-20 11:01] LABS: A/G RATIO 0.7 (1-2); ALBUMIN 3.4 g/dl (3.4-5.0); ANION GAP 19.8 (5-15); BILIRUBIN TOTAL 0.7 mg/dL (0.2-1.0); BUN/CREATININE RATIO 15.3 (14-18); C-REACTIVE PROTEIN 0.97 mg/dL (<0.30); CALCIUM 8.8 mg/dL (8.5-10.1); CREATININE 3.2 mg/dL (0.55-1.02); EST CRCL DRUG DOSING (CG) 12.56 mL/min; MAGNESIUM 2.3 mg/dL (1.8-2.4); POTASSIUM,K 4.8 mEq/L (3.5-5.1); PROTEIN TOTAL,TP 8.2 g/dl (6.4-8.2)
[2023-11-20 11:04] LABS: HEMOGLOBIN A1C 5.2 %
[2023-11-20 12:13] LABS: TSH 16.244 uIU/mL (0.358-3.74)
[2023-11-20] MEDS ORDERED: Dextrose 5%-0.9% NaCl 1,000 ML IV SCH (12:15)
[2023-11-20] MEDS: Furosemide 40 MG/4 ML VIAL IVPUSH ONE (13:15)
[2023-11-20 13:22] VITALS: BP 101/89; PULSE 98
== END 2023-11-20 13:33 | disposition home or self-care (01) ==
LOC: JD.ED 09:50
DX: I11.0 Hypertensive heart disease with heart failure (principal); I50.9 Heart failure, unspecified; I50.84 End stage heart failure; I48.20 Chronic atrial fibrillation, unspecified; N18.5 Chronic kidney disease, stage 5; R79.89 Other specified abnormal findings of blood chemistry; E03.9 Hypothyroidism, unspecified; Z95.810 Presence of automatic (implantable) cardiac defibrillator; I25.2 Old myocardial infarction; I25.10 Atherosclerotic heart disease of native coronary artery without angina pectoris; Z90.49 Acquired absence of other specified parts of digestive tract; Z86.16 Personal history of COVID-19; Z88.1 Allergy status to other antibiotic agents; Z79.01 Long term (current) use of anticoagulants; Z79.899 Other long term (current) drug therapy
CPT/HCPCS: 36415; 71045; 80053; 83036; 83605; 83735; 83880; 84443; 84484; 85025; 85610; 85730; 86140; 93005; 96361; 96374; 99285; J1940; J7042; 93010; 99284

== ENCOUNTER 2024-03-20 20:01 | Emergency (ER) | payer MEDICARE, BC ==
[~2024-03-20 20:01] MED LIST: EPINEPHrine 1:10,000 1 MG/10 ML Syringe ONE; Sodium Bicarbonate 8.4% 50 MEQ/50 ML Syringe ONE
[2024-03-20] MEDS ORDERED: Sodium Chloride 0.9% 1,000 ML ONE (20:07)
== END 2024-03-20 23:20 | disposition expired ==
LOC: JD.ED 20:01
DX: I46.9 Cardiac arrest, cause unspecified (principal); I10 Essential (primary) hypertension; I25.2 Old myocardial infarction; E78.00 Pure hypercholesterolemia, unspecified; E03.9 Hypothyroidism, unspecified; Z88.8 Allergy status to other drugs, medicaments and biological substances; Z79.01 Long term (current) use of anticoagulants; Z79.890 Hormone replacement therapy; Z79.899 Other long term (current) drug therapy; Z86.16 Personal history of COVID-19; Z90.49 Acquired absence of other specified parts of digestive tract
CPT/HCPCS: 31500; 92950; 99285; J0171; J7030; J3490